=== PATIENT | male | born 1955 | race Caucasian/White ===

== ENCOUNTER → 2016-11-01 | Outpatient (REF) | payer OTHER ==
[~2016-11-01] MED LIST: /AMLO25TA OR; ADV250INH INH; ALBUTEROL MDI INH; ASPI1TAB PO; ASPI325T PO; CEPH2CAP OR; CIPR500S PO; FLAG500T PO; FOLI1TAB86 PO; LASI40TA PO; LOSA50TA20 PO; MICR10CA PO; NICO21DI26 EXT; SPIRIVA HANDIHALER INH; TYLE325T5 PO; ULTR50TA PO; VITA100066 PO; VITA100T2 PO; VITMTA OR
[2016-11-01 12:46] LABS: MEAN CORPUSCULAR HEMOGLOBIN 30.7 pg (27.0-33.0); MEAN CORPUSCULAR HGB CONC 34.3 g/dl (32.0-36.5); MEAN CORPUSCULAR VOLUME 89.6 fl (80.0-96.0); RED CELL DISTRIBUTION WIDTH 13.5 % (11.5-14.5); WHITE BLOOD COUNT 3.8 K/mm3 (4.0-10.0)
[2016-11-01 13:07] LABS: ALBUMIN 3.8 GM/DL (3.2-5.2); ALBUMIN/GLOBULIN RATIO 1.36 (1.00-1.93); ALKALINE PHOSPHATASE 93 U/L (45-117); ALT/SGPT 24 U/L (12-78); ANION GAP 6 MEQ/L (8-16); AST/SGOT 17 U/L (15-37); BILIRUBIN,TOTAL 0.4 MG/DL (0.2-1.0); BLOOD UREA NITROGEN 12 MG/DL (7-18); CALCIUM LEVEL 8.8 MG/DL (8.8-10.2); CARBON DIOXIDE LEVEL 29 MEQ/L (21-32); CHLORIDE LEVEL 107 MEQ/L (98-107); CHOLESTEROL LEVEL 190 MG/DL (<200); CREATININE FOR GFR 0.73 MG/DL (0.70-1.30); GLOMERULAR FILTRATION RATE > 60.0 (>49); GLUCOSE, FASTING 106 MG/DL (80-110); POTASSIUM SERUM 4.5 MEQ/L (3.5-5.1); SODIUM LEVEL 142 MEQ/L (136-145); TOTAL PROTEIN 6.6 GM/DL (6.4-8.2); TRIGLYCERIDES LEVEL 64 MG/DL (<150)
== END ==
LOC: M SFHCADAM 07:53
PROVIDERS: ATTEND Family Medicine
DX: D64.9 Anemia, unspecified (principal); I10 Essential (primary) hypertension; E78.5 Hyperlipidemia, unspecified; E55.9 Vitamin D deficiency, unspecified

== ENCOUNTER → 2016-11-15 | Outpatient (CLI) | payer OTHER ==
--- NOTE | 2016-11-16 00:06 | REP ---
Clinical: Right upper quadrant abdominal pain. Technique: Owens scale ultrasound using curved array transducer. Findings: The liver and pancreas are normal in contour, size, and echogenicity without focal hepatic or pancreatic lesions identified. The gallbladder is normal without gallstones, wall thickening or pericholecystic fluid. No biliary ductal dilatation is appreciated, and the common bile duct measures 3.4 mm diameter. The right kidney is normal in reniform shape without hydronephrosis and measures 10.5 x 7.0 x 6.1 cm. No ascites. Visualized portions of the abdominal aorta normal. Impression: Normal right upper quadrant and gallbladder abdominal ultrasound. Signed by Dayron Dumont MD 11/15/2016 11:57 P
== END ==
LOC: M RAD 08:58
PROVIDERS: ATTEND Family Medicine
DX: R10.11 Right upper quadrant pain (principal)

== ENCOUNTER → 2018-01-03 | Outpatient (REF) | payer OTHER ==
[2018-01-03 13:38] LABS: BASO % 0.8 % (0.0-1.0); EOS # 0.2 10^3/uL (0.0-0.50); EOS % 4.1 % (0.0-3.0); HEMATOCRIT 37.1 % (42.0-52.0); HEMOGLOBIN 11.8 g/dl (13.5-17.5); IMMATURE GRANULOCYTE % 0.2 % (0-3.0); LYMPH # 1.4 10^3/uL (1.5-4.5); LYMPH % 26.9 % (24.0-44.0); MEAN CORPUSCULAR HEMOGLOBIN 28.8 pg (27.0-33.0); MEAN CORPUSCULAR HGB CONC 31.8 g/dl (32.0-36.5); MEAN CORPUSCULAR VOLUME 90.5 fl (80.0-96.0); MONO # 0.3 10^3/uL (0.0-0.8); MONO % 5.1 % (0.0-5.0); NEUTROPHILS # 3.2 10^3/uL (1.8-7.7); NEUTROPHILS % 62.9 % (36.0-66.0); PLATELET COUNT, AUTOMATED 237 10^3/uL (150-450); RED CELL DISTRIBUTION WIDTH 14.1 % (11.5-14.5); RETIC HEMOGLOBIN EQUIVALENT 33.5 pg (24-36); RETICULOCYTE # 48.8 10^9/L (17-77); RETICULOCYTE % 1.2 % (0.5-1.5); WHITE BLOOD COUNT 5.1 10^3/uL (4.0-10.0)
[2018-01-03 14:14] LABS: ALBUMIN 3.6 GM/DL (3.2-5.2); ALBUMIN/GLOBULIN RATIO 1.16 (1.00-1.93); ALKALINE PHOSPHATASE 93 U/L (45-117); ALT/SGPT 24 U/L (12-78); ANION GAP 7 MEQ/L (8-16); AST/SGOT 21 U/L (7-37); BILIRUBIN,TOTAL 0.3 MG/DL (0.2-1.0); BLOOD UREA NITROGEN 16 MG/DL (7-18); CALCIUM LEVEL 8.3 MG/DL (8.8-10.2); CARBON DIOXIDE LEVEL 28 MEQ/L (21-32); CHLORIDE LEVEL 105 MEQ/L (98-107); CHOLESTEROL LEVEL 185 MG/DL (<200); CHOLESTEROL RISK RATIO 4.743 (<5); CPK CREATINE PHOSPHOKINASE 46 U/L (39-308); CREATININE FOR GFR 0.74 MG/DL (0.70-1.30); FERRITIN 49 NG/ML (26-388); GLOMERULAR FILTRATION RATE > 60.0 (>49); GLUCOSE, FASTING 110 MG/DL (70-100); HDL CHOLESTEROL 39 MG/DL (>40); IRON (FE) 52 UG/DL (65-175); LDL CHOLESTEROL 125 MG/DL (<100); MAGNESIUM LEVEL 2.1 MG/DL (1.8-2.4); NON-HDL-C 146 MG/DL; PERCENT SATURATION 14.4 % (19.7-50.0); POTASSIUM SERUM 4.5 MEQ/L (3.5-5.1); SODIUM LEVEL 140 MEQ/L (136-145); TOTAL IRON BINDING CAPACITY 362 UG/DL (250-450); TOTAL PROTEIN 6.7 GM/DL (6.4-8.2); TRIGLYCERIDES LEVEL 105 MG/DL (<150)
== END ==
LOC: M SFHCADAM 08:23
DX: D64.9 Anemia, unspecified (principal); D70.9 Neutropenia, unspecified; R25.2 Cramp and spasm; E78.5 Hyperlipidemia, unspecified; R63.5 Abnormal weight gain; Z12.5 Encounter for screening for malignant neoplasm of prostate

== ENCOUNTER → 2018-04-03 | Outpatient (REF) | payer MEDICAID ==
[~2018-04-03] MED LIST changes: -LOSA50TA20 PO; +LOSA50TA88 PO
[2018-04-03 13:18] LABS: HEMATOCRIT 37.4 % (42.0-52.0); HEMOGLOBIN 12.3 g/dl (13.5-17.5); MEAN CORPUSCULAR HEMOGLOBIN 29.2 pg (27.0-33.0); MEAN CORPUSCULAR HGB CONC 32.9 g/dl (32.0-36.5); MEAN CORPUSCULAR VOLUME 88.8 fl (80.0-96.0); PLATELET COUNT, AUTOMATED 181 10^3/uL (150-450); RED BLOOD COUNT 4.21 10^6/uL (4.30-6.10); WHITE BLOOD COUNT 6.4 10^3/uL (4.0-10.0)
[2018-04-03 13:24] LABS: BLOOD UREA NITROGEN 22 MG/DL (7-18); CALCIUM LEVEL 8.9 MG/DL (8.8-10.2); CARBON DIOXIDE LEVEL 30 MEQ/L (21-32); CHLORIDE LEVEL 103 MEQ/L (98-107); CREATININE FOR GFR 0.81 MG/DL (0.70-1.30); FERRITIN 54 NG/ML (26-388); GLOMERULAR FILTRATION RATE > 60.0 (>49); GLUCOSE, FASTING 91 MG/DL (70-100); IRON (FE) 81 UG/DL (65-175); PERCENT SATURATION 25.2 % (19.7-50.0); POTASSIUM SERUM 4.1 MEQ/L (3.5-5.1); SODIUM LEVEL 139 MEQ/L (136-145); TOTAL IRON BINDING CAPACITY 322 UG/DL (250-450)
== END ==
LOC: M SFHCADAM 09:51
PROVIDERS: ATTEND Family Medicine
DX: D50.9 Iron deficiency anemia, unspecified (principal); I10 Essential (primary) hypertension

== ENCOUNTER → 2018-10-04 | Outpatient (REF) | payer MEDICAID ==
[~2018-10-04] MED LIST changes: -/AMLO25TA OR; -ASPI1TAB PO; +ASPI81TA26 PO; +NORV2TAB OR
[2018-10-04 12:17] LABS: HEMATOCRIT 34.6 % (42.0-52.0); HEMOGLOBIN 11.5 g/dl (13.5-17.5); MEAN CORPUSCULAR HEMOGLOBIN 30.3 pg (27.0-33.0); MEAN CORPUSCULAR HGB CONC 33.2 g/dl (32.0-36.5); MEAN CORPUSCULAR VOLUME 91.1 fl (80.0-96.0); PLATELET COUNT, AUTOMATED 200 10^3/uL (150-450); WHITE BLOOD COUNT 5.1 10^3/uL (4.0-10.0)
[2018-10-04 13:26] LABS: ALBUMIN 3.6 GM/DL (3.2-5.2); ALT/SGPT 24 U/L (12-78); BILIRUBIN,TOTAL 0.3 MG/DL (0.2-1.0); BLOOD UREA NITROGEN 20 MG/DL (7-18); CALCIUM LEVEL 8.5 MG/DL (8.8-10.2); CARBON DIOXIDE LEVEL 30 MEQ/L (21-32); CHLORIDE LEVEL 105 MEQ/L (98-107); CHOLESTEROL LEVEL 202 MG/DL (<200); CHOLESTEROL RISK RATIO 3.482 (<5); CREATININE FOR GFR 0.79 MG/DL (0.70-1.30); FERRITIN 44 NG/ML (26-388); GLOMERULAR FILTRATION RATE > 60.0 (>49); GLUCOSE, FASTING 102 MG/DL (70-100); HDL CHOLESTEROL 58 MG/DL (>40); IRON (FE) 61 UG/DL (65-175); LDL CHOLESTEROL 131 MG/DL (<100); NON-HDL-C 144 MG/DL; PERCENT SATURATION 20.2 % (19.7-50.0); POTASSIUM SERUM 4.6 MEQ/L (3.5-5.1); SODIUM LEVEL 141 MEQ/L (136-145); TOTAL IRON BINDING CAPACITY 302 UG/DL (250-450); TOTAL PROTEIN 6.8 GM/DL (6.4-8.2); TRIGLYCERIDES LEVEL 66 MG/DL (<150)
== END ==
LOC: M SFHCADAM 08:13
PROVIDERS: ATTEND Family Medicine
DX: D50.9 Iron deficiency anemia, unspecified (principal); I10 Essential (primary) hypertension; E78.5 Hyperlipidemia, unspecified

== ENCOUNTER → 2019-03-22 | Outpatient (REF) | payer MEDICAID ==
[2019-03-22 17:34] LABS: HEMATOCRIT 37.8 % (42.0-52.0); HEMOGLOBIN 12.2 g/dl (13.5-17.5); MEAN CORPUSCULAR HEMOGLOBIN 29.8 pg (27.0-33.0); MEAN CORPUSCULAR HGB CONC 32.3 g/dl (32.0-36.5); MEAN CORPUSCULAR VOLUME 92.4 fl (80.0-96.0); PLATELET COUNT, AUTOMATED 215 10^3/uL (150-450); RED BLOOD COUNT 4.09 10^6/uL (4.30-6.10); WHITE BLOOD COUNT 4.9 10^3/uL (4.0-10.0)
[2019-03-22 17:39] LABS: ALBUMIN 3.8 GM/DL (3.2-5.2); ALT/SGPT 25 U/L (12-78); BILIRUBIN,TOTAL 0.3 MG/DL (0.2-1.0); BLOOD UREA NITROGEN 11 MG/DL (7-18); CALCIUM LEVEL 8.9 MG/DL (8.8-10.2); CARBON DIOXIDE LEVEL 30 MEQ/L (21-32); CHLORIDE LEVEL 107 MEQ/L (98-107); CREATININE FOR GFR 0.74 MG/DL (0.70-1.30); FERRITIN 48 NG/ML (26-388); GLOMERULAR FILTRATION RATE > 60.0 (>49); GLUCOSE, FASTING 96 MG/DL (70-100); IRON (FE) 63 UG/DL (65-175); PERCENT SATURATION 19.5 % (19.7-50.0); POTASSIUM SERUM 4.7 MEQ/L (3.5-5.1); SODIUM LEVEL 141 MEQ/L (136-145); TOTAL IRON BINDING CAPACITY 323 UG/DL (250-450); TOTAL PROTEIN 7.1 GM/DL (6.4-8.2)
[2019-03-22 17:51] LABS: HEMOGLOBIN A1c 6.3 %
== END ==
LOC: M SFHCADAM 08:27
PROVIDERS: ATTEND Family Medicine
DX: D50.9 Iron deficiency anemia, unspecified (principal); R73.03 Prediabetes

== ENCOUNTER → 2020-07-08 | Outpatient (CLI) | payer OTHER, MEDICAID ==
--- NOTE | 2020-07-08 12:45 | REP ---
INDICATION: SALES COMPARISON: 02/27/2015 TECHNIQUE: PA and lateral. FINDINGS: There is a large 12 cm well-circumscribed mass which appears to arise from the right hilum into the right mid lung zone. There is a moderate right lower lobe effusion and right basilar atelectasis. These findings are malignant unless proven otherwise. Cardiac silhouette is normal. Left hemithorax is clear. Skeletal structures are intact. IMPRESSION: Large right sided mass with right effusion and atelectasis. Findings are malignant unless proven otherwise. Chest CT with contrast is recommended. <Electronically signed by Dayron Dumont > 07/08/20 [id number]
== END ==
LOC: M ADAMS 12:08
PROVIDERS: ATTEND Family Medicine
DX: R91.8 Other nonspecific abnormal finding of lung field (principal); J90 Pleural effusion, not elsewhere classified; J98.11 Atelectasis; R06.00 Dyspnea, unspecified

== ENCOUNTER → 2020-07-08 | Outpatient (REF) | payer OTHER, MEDICAID ==
[2020-07-08 18:07] LABS: HEMATOCRIT 37.3 % (42.0-52.0); HEMOGLOBIN 11.2 g/dl (13.5-17.5); MEAN CORPUSCULAR HEMOGLOBIN 26.5 pg (27.0-33.0); MEAN CORPUSCULAR VOLUME 88.2 fl (80.0-96.0); PLATELET COUNT, AUTOMATED 283 10^3/uL (150-450); RED BLOOD COUNT 4.23 10^6/uL (4.30-6.10); WHITE BLOOD COUNT 6.2 10^3/uL (4.0-10.0)
[2020-07-08 18:28] LABS: ALBUMIN 3.6 GM/DL (3.2-5.2); ALT/SGPT 22 U/L (12-78); BILIRUBIN,TOTAL 0.3 MG/DL (0.2-1.0); BLOOD UREA NITROGEN 13 MG/DL (7-18); CALCIUM LEVEL 8.9 MG/DL (8.8-10.2); CARBON DIOXIDE LEVEL 35 MEQ/L (21-32); CHLORIDE LEVEL 102 MEQ/L (98-107); CHOLESTEROL LEVEL 198 MG/DL (<200); CHOLESTEROL RISK RATIO 3.355 (<5); CREATININE FOR GFR 0.68 MG/DL (0.70-1.30); FERRITIN 47 NG/ML (26-388); FREE T4 1.01 NG/DL (0.76-1.46); GLOMERULAR FILTRATION RATE > 60.0 (>49); GLUCOSE, FASTING 129 MG/DL (70-100); HDL CHOLESTEROL 59 MG/DL (>40); IRON (FE) 37 UG/DL (65-175); LDL CHOLESTEROL 114 MG/DL (<100); MAGNESIUM LEVEL 2.2 MG/DL (1.8-2.4); NON-HDL-C 139 MG/DL; NT-PRO BNP 24 PG/ML (<125); PERCENT SATURATION 11.5 % (19.7-50.0); POTASSIUM SERUM 4.3 MEQ/L (3.5-5.1); SODIUM LEVEL 138 MEQ/L (136-145); TOTAL IRON BINDING CAPACITY 323 UG/DL (250-450); TOTAL PROTEIN 7.2 GM/DL (6.4-8.2); TRIGLYCERIDES LEVEL 125 MG/DL (<150)
[2020-07-08 19:01] LABS: HEMOGLOBIN A1c 6.4 %
[2020-07-08 19:12] LABS: ERYTHROCYTE SEDIMENTATION RATE 44 mm/hr (0-20)
== END ==
LOC: M SFHCADAM 12:03
PROVIDERS: ATTEND Family Medicine
DX: D50.9 Iron deficiency anemia, unspecified (principal); M77.9 Enthesopathy, unspecified; I10 Essential (primary) hypertension; E78.5 Hyperlipidemia, unspecified; R73.03 Prediabetes; I49.3 Ventricular premature depolarization; R06.00 Dyspnea, unspecified; Z12.5 Encounter for screening for malignant neoplasm of prostate
CPT/HCPCS: 80053; 80061; 82728; 83036; 83550; 83735; 83880; 84439; 84443; 85027; 85046; 85652; G0103

== ENCOUNTER → 2020-07-16 | Outpatient (CLI) | payer MEDICAID, OTHER ==
[~2020-07-16] MED LIST changes: +ISOVUE-370 76% 100ML VIAL As Ordered ONE
--- NOTE | 2020-07-16 12:21 | REP ---
INDICATION: MASS OF RIGHT LUNG. COMPARISON: Radiographs 07/08/2020. CT abdomen and pelvis 02/27/2015. TECHNIQUE: CT chest performed following the intravenous administration of 100 cc of Isovue 370. Sagittal and coronal reconstruction images are performed. FINDINGS: Lungs: There is a large low-density mass with heterogeneous enhancement in the right upper medial hemithorax. This measures approximately 10.6 x 11.3 x 8.9 cm. Mild central air density is seen. Margins are irregular. This extends into the superior mediastinum. It abuts the superior vena cava and causes significant narrowing of the vessel but there is no obstruction of the superior vena cava, with contrast visualized throughout its lumen. Scattered patchy parenchymal opacities are seen in the right lung representing atelectasis and or infiltrate. Mediastinum: No adenopathy. Jessica: No adenopathy. Axilla: No adenopathy. Pleura: There is a large right pleural effusion. Heart: Not enlarged. Thoracic aorta: No aneurysm or dissection. Upper abdominal structures: There is stable adrenal gland thickening bilaterally. Visualized osseous structures: There are diffuse degenerative changes of the spine. Several mid and lower thoracic vertebral bodies demonstrate loss of height most consistent with chronic osteoporotic compression deformities. Multiple Schmorl's nodes are also visualized of these vertebral bodies. IMPRESSION: Large mass upper right hemithorax, low in density with mild heterogeneous enhancement and mild central air density. This most likely represents necrotic neoplasm. An infectious process could also have this appearance. There is significant narrowing of the adjacent superior vena cava but no obstruction. No other significant adenopathy. Large right pleural effusion. Patchy areas of atelectasis/infiltrate right lung. <Electronically signed by Kushal Owens > 07/16/20 [id number]
== END ==
LOC: M RAD 11:06
PROVIDERS: ATTEND Family Medicine
DX: R91.8 Other nonspecific abnormal finding of lung field (principal); J90 Pleural effusion, not elsewhere classified
CPT/HCPCS: 71260; Q9967

== ENCOUNTER → 2020-07-22 | Outpatient (CLI) | payer OTHER ==
[~2020-07-22] MED LIST changes: +ASPI325T49 PO; +D31000TA2 PO; +FERR325T82 PO; +IBUP200T45 PO; -ISOVUE-370 76% 100ML VIAL As Ordered ONE; +PROAAER10 INH
--- NOTE | 2020-07-22 16:42 | RADONC.CN ---
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 He is seen for initial workup and consideration of radiation. Diagnosis/Treatment History Oncologic History Presented to PCP for annual exam 07/08/20. Complained of hemoptysis for ~ 6 months also worsening SOB, orthopnea and SALES. Had CT chest 07/16/20 with large anterior RUL mass impinging on SVC also large right pleural effusion. Recent data: 07/16/20 CT chest FINDINGS: Lungs: There is a large low-density mass with heterogeneous enhancement in the right upper medial hemithorax. This measures approximately 10.6 x 11.3 x 8.9 cm. Mild central air density is seen. Margins are irregular. This extends into the superior mediastinum. It abuts the superior vena cava and causes significant narrowing of the vessel but there is no obstruction of the superior vena cava, with contrast visualized throughout its lumen. Scattered patchy parenchymal opacities are seen in the right lung representing atelectasis and or infiltrate. Mediastinum: No adenopathy. Jessica: No adenopathy. Axilla: No adenopathy. Pleura: There is a large right pleural effusion. Heart: Not enlarged. Thoracic aorta: No aneurysm or dissection. Upper abdominal structures: There is stable adrenal gland thickening bilaterally. Visualized osseous structures: There are diffuse degenerative changes of the spine. Several mid and lower thoracic vertebral bodies demonstrate loss of height most consistent with chronic osteoporotic compression deformities. Multiple Schmorl's nodes are also visualized of these vertebral bodies. IMPRESSION: Large mass upper right hemithorax, low in density with mild heterogeneous enhancement and mild central air density. This most likely represents necrotic neoplasm. An infectious process could also have this appearance. There is significant narrowing of the adjacent superior vena cava but no obstruction. No other significant adenopathy. Large right pleural effusion. Patchy areas of atelectasis/infiltrate right lung. Interval History Reports that he has been having hemoptysis since last year, BPB with mucus, intermittent. He also feels some swelling and tightness on the right side of his neck when he wakes up. Has profound orthopnea cannot tolerate laying on his left side. Can only lay on right. Cannot lay flat on his back or he feels like he cannot breath at all. Denies hoarseness, or stridor. He has right sided chest pain in the upper portion of his chest. Reports he can walk about 60 feet with out having to rest. He denies weight loss or fevers/chills. He does not think that his face is swollen. Explains he is generally resistant to medical care. Past Medical History: COPD HPL HTN Neuropathy CVD Past Surgical History: ORF L femus Family History: Father skin cancer Maternal grandmother colon cancer Social History: 45 pack year former smoker Drinks 1-2 drinks per week Former rose asbestos exposure occupationally Allergies / Meds Allergies: Coded Allergies: No Known Allergies (Unverified , 09/07/12) Home Meds Active Scripts Ciprofloxacin (Cipro) 500 Mg/5 Ml [place], 500 MG PO BID for 7 Days, SAVANA Prov:TELLY MARTINES DO 02/28/15 Metronidazole (Flagyl) 500 Mg Tab, 500 MG PO Q8H for 7 Days, TAB Prov:BOBBIINGGiancarlo DO 02/28/15 Reported Medications Ferrous Sulfate (Iron) 325 Mg Tablet, 1 TAB PO DAILY for 30 Days, #30 TAB 07/22/20 Cholecalciferol (Vitamin D3) (Vitamin D3) 1,000 Unit Tab, 1000 UNIT PO DAILY, TAB 02/27/15 Aspirin (Aspirin EC) 81 Mg Tab, 81 MG PO DAILY, TAB 02/27/15 Losartan Potassium (Losartan Potassium) 50 Mg Tab, 50 MG PO DAILY, TAB 02/27/15 Review of Systems Constitutional: Reports: Fatigue; Denies: Chills, Fever, Weight Loss Eyes: Denies: Pain HEENT: Denies: Head Aches Pulmonary: Reports: Dyspnea, Cough; Denies: Pleuritic Chest Pain Cardiovascular: Reports: Orthopnea; Denies: Chest Pain Gastrointestinal: Denies: Nausea, Abdominal Pain Genitourinary: Denies: Dysuria Hematologic: Denies: Bruising Musculoskeletal: Denies: Neck pain, Back pain Neurological: Denies: Weakness, Numbness Psych: Reports: Mood Normal Vital Signs Ht 74" Wt 270 lbs BMI 34 T 96.6 P 83 BP 191/93 O2 84-86% at rest on room air, 82-84% with ambulation Pain 0 Fatigue 1 General Exam: Positive: Alert, Cooperative, No Acute Distress Eye Exam: Positive: PERRLA, EOMI ENT EXAM: Positive: Atraumatic, Pharynx Normal, Tongue Midline, Pinna Normal, Other ENT (He has mild venous engorgement notes in the jugulars. No obvious facial swelling or plethora. He has visible collateralized veins on the chest. No palpable cervical or supraclavicular adenopathy) Chest Exam: Positive: Clear to auscultation; Negative: Normal air movement (Diminished lung sounds right mid-base. Loss of tactile fremitus over this regions. Scattered mild wheezes elsewhere in the lung benitez) Heart Exam: Positive: Rate Normal, Regular Rhythm Abdomen Exam: Positive: Soft; Negative: Tenderness Extremity Exam: Negative: Edema Skin Exam: Positive: Nl turgor and temperature Neuro Exam: Positive: Normal Gait, Normal Speech, Cranial Nerves 3-12 NL Psych Exam: Positive: Mental status NL Diagnostic and Laboratory Diagnostic Review Radiologic images, relevant labs and pathology reports were personally reviewed and discussed with Mr. Ace. Assessment and Plan Impression Mr. Ace is a 65 year old male former smoker with what is likely locally- advanced NSCLC of the RUL presenting as a large necrotic mass abutting the chest wall anteriorly and causing SVC syndrome as well as a large right pleural effusion, likely malignant, [id number] stage SUKUMAR. He is seen for initial workup and consideration of radiation. Stage Pending PET-CT and biopsy, NSCLC stage SUKUMAR [id number] (effusion) Performance Status ECOG 3 Plan We had an extensive discussion with Mr. Ace regarding the diagnosis at hand and available therapeutic options. I discussed that the clinical scenario is fitting of a NSCLC, the necrotic T4- sized mass in the RUL is telling, I think. This is amenable to biopsy, which I know Dr. Torre has ordered, I will move this up if I am able. In conjunction I also would like him to have a diagnostic and therapeutic thoracentesis to drain the large effusion on the right. Hopefully this will ameliorate his orthopnea. I think he has mild clinical SVC syndrome which is well compensated at the moment. I do not favor treatment without a biopsy, nor do I think he needs urgent endovascular intervention. To stage him completely he should have a PET-CT and an MRI head. With all of this information obtained, we could then discuss treatment which for the locally advanced mass, at least some radiation will be warranted to stabilize and hopefully improve his symptoms. If he has disease limited to the thorax, then I would advocate for more intensive loco-regional therapy, if the patient is willing. I will refer to medical oncology for their opinion on systemic therapy. Finally, he would benefit from home O2 as his O2 sats were 84-86% at rest on room air, and 82-84% with ambulation. After discussing the risks, benefits and alternatives to radiation therapy, Mr. Ace was amenable to pursuing the aforementioned workup. All questions were answered to the patient's satisfaction. I will see him in 1 week for further decision making. We instructed the patient that if there were any questions,concerns or changes in clinical status in the interim to contact us. Recommendations IR biopsy and thoracentesis PET-CT MRI head Medical oncology referral Home O2 No urgent indication for RT without staging Will see back in 1-2 week for further decision making Billing Statement Total time of [62] minutes was spent preparing for the visit [4], obtaining HPI [10], examining the patient [7], reviewing diagnostic tests [5], discussing management options [15], coordinating care [13], and writing this note [8]. NATALIE ROTHMAN MD July 22, 2020 16:42
== END ==
LOC: M ONCR 10:02
PROVIDERS: ATTEND General Practice
DX: C34.11 Malignant neoplasm of upper lobe, right bronchus or lung (principal)

== ENCOUNTER → 2020-07-22 | Outpatient (REF) | payer OTHER, MEDICAID ==
[2020-07-22 14:41] LABS: INR 0.96
[2020-07-22 14:42] LABS: PARTIAL THROMBOPLASTIN TIME 30.9 SECONDS (24.2-38.5)
== END ==
LOC: M SFHCADAM 11:58
PROVIDERS: ATTEND Family Medicine
DX: Z01.818 Encounter for other preprocedural examination (principal); I87.1 Compression of vein; Z79.899 Other long term (current) drug therapy

== ENCOUNTER → 2020-07-23 | Outpatient (CLI) | payer OTHER ==
[~2020-07-23] MED LIST changes: +LIDOCAINE 1% MDV 20ML VIAL As Ordered ONE
[2020-07-23 10:34] VITALS: BP 184/90
--- NOTE | 2020-07-23 16:17 | REP ---
INDICATION: RT LUNG MASS. COMPARISON: None. TECHNIQUE: The procedure was performed under the direct supervision of Dr. Owens. The patient has a history of a 10.6 x 11.3 x 8.9 cm large low density mass in the right upper medial hemithorax seen on a previous CT scan dated 07/17/1999 The risks and benefits of the procedure were explained to the patient and informed consent was obtained. The right upper lobe lung mass was localized using CT guidance. The skin was prepped and draped in a sterile fashion. 1% lidocaine was used as a local anesthetic. Using CT guidance a 19/20 gauge coaxial needle biopsy system was inserted and advanced into the mass. Five core biopsy samples were obtained and sent to the lab. The patient tolerated the procedure well and there were no immediate complications. After the appropriate amount to monitor convalescence the patient was discharged from the department. FINDINGS: None IMPRESSION: CT-guided right upper lobe lung mass biopsy. <Electronically signed by Isac Ely > 07/23/20 1526 <Electronically signed by Kushal Owens > 07/23/20 1614
== END ==
LOC: M IRPRO 10:14
PROVIDERS: ATTEND Family Medicine
DX: C34.11 Malignant neoplasm of upper lobe, right bronchus or lung (principal); J90 Pleural effusion, not elsewhere classified

== ENCOUNTER → 2020-07-23 | Outpatient (CLI) | payer OTHER ==
--- NOTE | 2020-07-23 12:46 | REP ---
INDICATION: POST RIGHT THORA, 2 VIEW. COMPARISON: 07/08/2020. TECHNIQUE: Two views of the chest. FINDINGS: The patient is status post right lung biopsy and thoracentesis today. Large right lung mass is again noted. There is no pneumothorax. There is residual moderate degree of pleural fluid, despite draining 2250 cc of pleural fluid from the right hemithorax. The left lung is clear. The heart does not appear to be significantly enlarged. There is calcification and tortuosity of the thoracic aorta. Once again there are mild degenerative changes of the spine with chronic compression deformities of the midthoracic vertebral bodies. IMPRESSION: No pneumothorax status post right lung biopsy and thoracentesis. Moderate amount of residual pleural fluid is present despite draining 2250 cc of pleural fluid from the right hemithorax. <Electronically signed by Kushal Owens > 07/23/20 [id number]
[2020-07-23 13:55] LABS: PH BODY FLUID 7.601 UNITS (NOT ESTABLISHED); SOURCE, BODY FLUID pH PLEURAL
[2020-07-23 14:08] VITALS: BP 144/76
[2020-07-23 14:21] LABS: AMYLASE, BODY FLUID 35 U/L (NOT ESTABLISHED); LDH, BODY FLUID 627 U/L (NOT ESTABLISHED); SOURCE, BODY FLUID AMYLASE PLEURAL; SOURCE, BODY FLUID GLUCOSE PLEURAL; SOURCE, BODY FLUID LDH PLEURAL; SOURCE, BODY FLUID TOT PROTEIN PLEURAL; TOTAL PROTEIN, BODY FLUID 4.2 G/DL (NOT ESTABLISHED)
[2020-07-23 14:30] LABS: APPEARANCE, BODY FLUID TURBID (CLEAR); PLEURAL FL COLOR RED (COLORLESS); SOURCE, BODY FLUID PLEURAL
--- NOTE | 2020-07-23 16:16 | REP ---
INDICATION: LUNG CA, PLEURAL EFFUSION. COMPARISON: None. TECHNIQUE: The procedure was performed under the direct supervision of Dr. Owens. The risks and benefits of the procedure were explained to the patient and informed consent was obtained. The right pleural effusion was localized using ultrasound guidance. The skin was prepped and draped in a sterile fashion. 1% lidocaine was used as a local anesthetic. An 8 Latvian multi side hole catheter was inserted using trocar technique. 2250 cc of low viscosity red colored fluid was withdrawn with a sample sent to the lab for analysis. The patient tolerated the procedure well and there were no immediate complications. After the appropriate amount to monitor convalescence the patient was discharged from the department. FINDINGS: None IMPRESSION: Ultrasound-guided right thoracentesis yielding 2250 cc of low viscosity red colored fluid. <Electronically signed by Isac Ely > 07/23/20 1530 <Electronically signed by Kushal Owens > 07/23/20 [id number]
== END ==
LOC: M IRPRO 10:23
PROVIDERS: ATTEND General Practice
DX: C34.11 Malignant neoplasm of upper lobe, right bronchus or lung (principal); J90 Pleural effusion, not elsewhere classified

== ENCOUNTER → 2020-07-28 | Outpatient (CLI) | payer OTHER ==
[~2020-07-28] MED LIST changes: -LIDOCAINE 1% MDV 20ML VIAL As Ordered ONE; +PROHANCE 279.3MG/ML 15ML VIAL As Ordered ONE; +PROHANCE 279.3MG/ML 5ML VIAL As Ordered ONE
--- NOTE | 2020-07-28 16:52 | REPVR ---
PROCEDURE INFORMATION: Exam: MR Head Without and With Contrast Exam date and time: 07/28/2020 3:46 PM Age: 65 years old Clinical indication: Condition or disease; History of cancer (specify primary cancer site): ; Patient HX: Recent lung CA dx TECHNIQUE: Imaging protocol: MR of the head without and with intravenous contrast. Contrast material: PROHANCE; Contrast volume: 20 ml; Contrast route: INTRAVENOUS (IV); COMPARISON: No relevant prior studies available. FINDINGS: Limitations: The study is mildly limited due to patient motion artifact. Brain: There is no acute intracranial hemorrhage, cerebral edema, or midline shift. No restricted diffusion is present to suggest acute infarction. Scattered increased T2 and FLAIR signal within the periventricular and subcortical white matter is present. This is nonspecific but likely related to chronic microangiopathic ischemic change. No enhancing lesions were identified after the administration of contrast. Cerebral ventricles: No hydrocephalus. Bones/joints: Unremarkable. Paranasal sinuses: Normal as visualized. No acute sinusitis. Mastoid air cells: Normal as visualized. No mastoid effusion. Orbital cavity: Unremarkable. Soft tissues: Unremarkable. IMPRESSION: 1. No acute abnormality. 2. Chronic findings as discussed above. Electronically signed by: Paxton Lafleur On 07/28/2020 16:51:55 PM
== END ==
LOC: M RAD 14:23
PROVIDERS: ATTEND General Practice
DX: C34.11 Malignant neoplasm of upper lobe, right bronchus or lung (principal)
CPT/HCPCS: 70553; A9576

== ENCOUNTER → 2020-08-11 | Outpatient (CLI) | payer OTHER ==
[~2020-08-11] MED LIST changes: +LIDOCAINE 1% MDV 20ML VIAL As Ordered ONE; -PROHANCE 279.3MG/ML 15ML VIAL As Ordered ONE; -PROHANCE 279.3MG/ML 5ML VIAL As Ordered ONE; +SODIUM BICARBONATE 8.4% INJ 50MEQ 50 ML VIAL As Ordered ONE
--- NOTE | 2020-08-11 15:55 | REP ---
INDICATION: POST THORA, 2 VIEW. Patient is status post right thoracentesis under ultrasound guidance removing 1.7 L of right pleural fluid. COMPARISON: Comparison chest x-ray July 23, 2020.. TECHNIQUE: Upright PA and lateral views. FINDINGS: There is no evidence of pneumothorax. The right hemithorax remains partially opacified with large pleural opacity at the right base. The left lung is clear. There is a large perihilar mass again seen. IMPRESSION: Moderate to large right pleural effusion appears to persist post thoracentesis. No pneumothorax seen. There is a large right perihilar mass. <Electronically signed by Sean Hood > 08/11/20 [id number]
[2020-08-11 17:15] VITALS: BP 134/70
--- NOTE | 2020-08-11 17:37 | REP ---
INDICATION: RT PLEURAL EFFUSION, LAST THORA 07/23/20 The patient has a history of right pleural effusion COMPARISON: None. TECHNIQUE: The procedure was performed by [facility], under the direct supervision of Dr. Hood The risks and benefits of the procedure were explained to the patient and an informed consent was obtained both verbally and written. Directly prior to the start of the procedure a formal time-out was completed in the procedure room. Pleural fluid in right lung zone was localized using ultrasound guidance. The skin was prepped and draped in a sterile fashion. Ten ML of buffered lidocaine was used as a local anesthetic. Using ultrasound guidance an 8-Burundian multi side-hole catheter was inserted using trocar technique. FINDINGS: One thousand seven hundred mL of yellow colored fluid was withdrawn and discarded. The patient tolerated the procedure well and there were no immediate complications. After the appropriate amount of monitored convalescence, the patient was discharged from the department. IMPRESSION: Ultrasound-guided thoracentesis with removal of 1700 mL of yellow pleural fluid. <Electronically signed by Suzanna Fink > 08/11/20 1619 <Electronically signed by Sean Hood > 08/11/20 [id number]
== END ==
LOC: M IRPRO 14:01
PROVIDERS: ATTEND Specialist
DX: J90 Pleural effusion, not elsewhere classified (principal)

== ENCOUNTER 2020-08-12 16:07 | Inpatient (IN) | payer OTHER ==
[2020-08-12] VITALS (15 sets, daily range): BP systolic 143–169; BP diastolic 70–80
[~2020-08-12] VITALS: Ht 188 cm; Wt 127.9 kg
[~2020-08-12 16:07] MED LIST changes: -LIDOCAINE 1% MDV 20ML VIAL As Ordered ONE; -SODIUM BICARBONATE 8.4% INJ 50MEQ 50 ML VIAL As Ordered ONE
[2020-08-12] MEDS ORDERED: PERCOCET 5MG/325MG TAB PO PRN (16:20)
[2020-08-12] MEDS ORDERED: NORCO, ANEXSIA 5/325MG TABLET (HYDROcodone/ACETAMINOPHEN) PO PRN (16:20)
[2020-08-12] MEDS ORDERED: LEVALBUTEROL 1.25 MG/0.5 ML CONCENTRATE NEB NEB PRN (16:20)
[2020-08-12] MEDS ORDERED: ACETAMINOPHEN TAB 650MG DOSE (2X325MG) PO PRN (16:20)
[2020-08-12] MEDS ORDERED: KCL 20MEQ IN D5/NS 1000ML 1,000 ML IV SCH (16:20)
[2020-08-12] MEDS ORDERED: BISACODYL 10 MG SUPP PR PRN (16:20)
[2020-08-12 16:51] LABS: BASO # 0.1 10^3/uL (0.0-0.2); BASO % 0.8 % (0.0-1.0); EOS # 0.2 10^3/uL (0.0-0.5); EOS % 2.4 % (0.0-3.0); HEMATOCRIT 35.2 % (42.0-52.0); HEMOGLOBIN 10.7 g/dl (13.5-17.5); LYMPH # 1.2 10^3/uL (1.5-5.0); LYMPH % 19.1 % (24.0-44.0); MEAN CORPUSCULAR HEMOGLOBIN 26.4 pg (27.0-33.0); MEAN CORPUSCULAR HGB CONC 30.4 g/dl (32.0-36.5); MEAN CORPUSCULAR VOLUME 86.7 fl (80.0-96.0); MONO # 0.4 10^3/uL (0.0-0.8); MONO % 6.2 % (2.0-8.0); NEUTROPHILS # 4.5 10^3/uL (1.5-8.5); NEUTROPHILS % 71.2 % (36.0-66.0); PLATELET COUNT, AUTOMATED 257 10^3/uL (150-450); RED BLOOD COUNT 4.06 10^6/uL (4.30-6.10); WHITE BLOOD COUNT 6.3 10^3/uL (4.0-10.0)
--- NOTE | 2020-08-12 17:10 | REP ---
INDICATION: after placement of pleurX COMPARISON: 08/11/2020 TECHNIQUE: Portable AP view of the chest FINDINGS: There is near complete opacification of the right hemithorax suggesting mass, consolidation and effusion similar to prior examination. Left hemithorax is clear. No obvious pneumothorax. Skeletal structures are stable. IMPRESSION: Near complete opacification of the right hemithorax essentially unchanged. <Electronically signed by Dayron Dumont > 08/12/20 [id number]
[2020-08-12 17:14] LABS: ABG HCO3 33.8 MEQ/L (22.0-26.0); ABG O2 SATURATION 92.5 % (95.0-99.0); ABG PARTIAL PRESSURE CO2 57.2 mmHg (35.0-45.0); ABG PARTIAL PRESSURE O2 68.6 mmHg (75.0-100.0); ABG STANDARD HCO3 30.8 MEQ/L (22.0-26.0); ABG TOTAL CO2 35.5 MEQ/L (23.0-31.0); ABG pH (ARTERIAL) 7.389 UNITS (7.350-7.450)
[2020-08-12 17:17] LABS: BLOOD UREA NITROGEN 16 MG/DL (7-18); CALCIUM LEVEL 8.9 MG/DL (8.8-10.2); CARBON DIOXIDE LEVEL 37 MEQ/L (21-32); CHLORIDE LEVEL 100 MEQ/L (98-107); GLOMERULAR FILTRATION RATE > 60.0 (>49); GLUCOSE, FASTING 107 MG/DL (70-100); POTASSIUM SERUM 3.7 MEQ/L (3.5-5.1); SODIUM LEVEL 139 MEQ/L (136-145)
[2020-08-12 17:25] LABS: RSV AMPLIFICATION NEGATIVE (NEGATIVE)
[2020-08-12] MEDS ORDERED: LIDOCAINE 1% MDV 20ML VIAL As Ordered ONE (17:51)
[2020-08-12] MEDS ORDERED: MIDAZOLAM INJ 2MG/2ML VIAL (J2250 PER 1MG) As Ordered ONE (17:51)
[2020-08-12] MEDS ORDERED: flumazeniL 0.5 MG/5 ML VIAL As Ordered ONE (17:51)
[2020-08-12] MEDS ORDERED: ceFAZolin SOD 1 GM in D5W MINI-BAG PLUS 50 ML IV ONE (18:00)
[2020-08-12] MEDS ORDERED: MIDAZOLAM INJ 2MG/2ML VIAL (J2250 PER 1MG) IV ONE ×2 (18:40→18:45)
[2020-08-12] MEDS ORDERED: LIDOCAINE 1% MDV 20ML VIAL SC ONE ×2 (18:50→18:53)
--- NOTE | 2020-08-12 19:09 | HPEPDOC ---
General Date of Admission August 12, 2020 at 16:20 Date of Service: August 12, 2020 Chief Complaint The patient is a 65-year-old male admitted with a reason for visit of Pleural Effusion. Source: Patient History of Present Illness Mr. Ace is a 65 year old male with recent diagnosis of stage 4 squamous cell carcinoma who was sent here from Dr. Galarza's office for recurrent pleural effusion. He was recently drained by IR and removed about 1.7L of fluid. When he was at Dr. Galarza's office, his CT chest demonstrated a large pleural effusion. Dr. Galarza has spoke with Dr. Castellanos about PleurX catheter. Patient was sent to the ER for evaluation. When I saw the patient, he was in mild distress. He was using respiratory muscles to breath. He tells me that his dyspnea has been going on for years and has gradually worsened. He could not pinpoint when it got acutely worse. He tells me that around January of last year, he started coughing up blood. In March, he was more dyspneic with activity and had trouble shovelling snow. One month ago, he had IR drainage of pleural effusion. He was also found to have squamous cell carcinoma. About a week ago, he was started on 2L of NC at home for his shortness of breath. Otherwise, patient is not normally on oxygen. Today, he was at Dr. Galarza's office for mapping to start treatment, but due to his respiratory status and pleural effusion, he was sent to the ED. Patient will be admitted for acute hypoxic respiratory failure 2/2 recurrent pleural effusion requiring. Home Medications Scheduled Aspirin (Aspirin EC) 325 Mg Tablet.dr, 325 MG PO DAILY, (Reported) Cholecalciferol (Vitamin D3) (Vitamin D3) 1,000 Unit Tablet, 1,000 UNITS PO DAILY, (Reported) Ferrous Sulfate (Iron) 325 Mg Tablet, 325 MG PO DAILY, (Reported) Losartan Potassium (Losartan Potassium) 50 Mg Tab, 50 MG PO DAILY, (Reported) Scheduled PRN Albuterol Sulfate (Proair Hfa) 8.5 Gm Hfa.aer.ad, 2 PUFF INH Q4H PRN for SOB/WHEEZING, (Reported) Allergies Coded Allergies: No Known Allergies (Unverified , 09/07/12) Past Medical History Medical History 1. COPD 2. Hypertension 3. Stage IV squamous cell carcinoma of the right lung 4. Hyperlipidemia 5. Peripheral neuropathy Surgical History 1. Left femur intertrochanteric/subtrochanteric fracture with ORIF with IM juan in 2012 2. Tendon repair of left hand Family History Father: History of skin cancer Mother: History of dementia Social History * Smoker: former Smoker (Quit in 2013, smoked for about 40 years, 2ppd) Alcohol: other (socially) Drugs: denies A-FIB/CHADSVASC A-FIB History Current/History of A-Fib/PAF?: No Review of Systems Constitutional: Denies: Chills, Fever Eyes: Denies: Pain ENT: Denies: Sore Throat Skin: Reports: Other (mutliple moles) Pulmonary: Reports: Dyspnea, Cough Cardiovascular: Reports: Chest Pain (Heavy, positional) Gastrointestinal: Denies: Abdominal Pain Genitourinary: Denies: Dysuria Neurological: Reports: Other Symptoms (paresthesias of feet) Psych: Denies: Anxiety, Depression Physical Examination General Exam: Positive: Alert, Cooperative, Mild Distress Eye Exam: Positive: EOMI ENT Exam: Positive: Atraumatic Neck Exam: Positive: Supple Chest Exam: Positive: Diminished (diminished over right lower lobe) Heart Exam: Positive: Rate Normal, Regular Rhythm Abdomen Exam: Positive: Normal bowel sounds, Soft; Negative: Tenderness Extremity Exam: Positive: Edema Neuro Exam: Positive: Normal Speech, Cranial Nerves 3-12 NL Psych Exam: Positive: Mental status NL, Mood NL Vital Signs Vital Signs Date Time Temp Pulse Resp B/P (MAP) Pulse Ox O2 Delivery O2 Flow Rate FiO2 08/12/20 17:51 97.6 08/12/20 16:47 82 22 134/71 (92) 94 Nasal Cannula 2.0 Laboratory Data Labs 24H Laboratory Tests 2 08/12/20 16:20: Immature Granulocyte % (Auto) 0.3, Neutrophils (%) (Auto) 71.2H, Lymphocytes (%) (Auto) 19.1L, Monocytes (%) (Auto) 6.2, Eosinophils (%) (Auto) 2.4, Basophils (%) (Auto) 0.8, Neutrophils # (Auto) 4.5, Lymphocytes # (Auto) 1.2L, Monocytes # (Auto) 0.4, Eosinophils # (Auto) 0.2, Basophils # (Auto) 0.1, Nucleated Red Blood Cells % (auto) 0.0, Anion Gap 2L, Glomerular Filtration Rate > 60.0, Calcium Level 8.9 08/12/20 16:30: Coronavirus (COVID-19)(PCR) NEGATIVE, Influenza Type A (RT-PCR) NEGATIVE, Influenza Type B (RT-PCR) NEGATIVE, Respiratory Syncytial Virus (PCR) NEGATIVE 08/12/20 16:51: Blood Gas Bicarbonate Standard 30.8H, Arterial Blood pH 7.389, Arterial Blood Partial Pressure CO2 57.2H, Arterial Blood Partial Pressure O2 68.6L, Arterial Blood Total CO2 35.5H, Arterial Blood HCO3 33.8H, Arterial Blood Base Excess 7.0H, Arterial Blood Oxygen Saturation 92.5L CBC/BMP Laboratory Tests 08/12/20 16:20 Assessment/Plan Mr. Ace is a 65 year old male with recent diagnosis of stage 4 squamous cell carcinoma who was sent here from Dr. Galarza's office for recurrent pleural effusion. Patient presented to the ED in respiratory distress. He had trouble completing sentences and was using his accessory muscles to breath. He was recently started on oxygen 1 week ago for dyspnea. Dr. Castellanos is aware of patient and is on the case. He will be placing a PleurX catheter today. Plan / VTE VTE Prophylaxis Ordered?: Yes Plan Plan 1. Acute hypoxic respiratory failure 2/2 recurrent pleural effusion -Patient had trouble completing sentence and was use accessory respiratory muscles -Patient normally not on oxygen. About 1 week ago, was started on 2L -ABG pO2 low at 68.6 -PleurX catheter to be placed by Dr. Castellanos today 2. Recurrent pleural effusion 2/2 stage 4 squamous cell carcinoma -Diagnosed with stage 4 squamous cell carcinoma 1 month ago -Follows with Dr. Mendoza and Dr. Galarza 3. Hypertension -Continue Losartan 4. DVT ppx -Patient having procedure. No chemical ppx. -TEDs Disposition: Pending clinical improvement and Dr. Castellanos's recommendations. ZARIA RAMOS DO August 12, 2020 19:09
--- NOTE | 2020-08-12 20:01 | RO ---
OPERATIVE NOTE DATE OF OPERATION: 08/12/2020 PREOPERATIVE DIAGNOSIS: Recurrent malignant pleural effusion. POSTOPERATIVE DIAGNOSIS: Recurrent malignant pleural effusion. PROCEDURE: Insertion of right tunneled PleurX catheter with moderate sedation. SURGEON: Dr. Fermin Castellanos DESCRIPTION OF PROCEDURE: After satisfactory moderate sedation, patient was prepped and draped in the usual sterile fashion. Entry and exit sites were marked. They were both infiltrated with 1% lidocaine with the entry site being infiltrated all the way to the pleura. Exploring it, it was placed, fluid was found, and a guidewire was placed. Two incisions were made, one around the guidewire and one at the exit site. A tunnel was created between the exit and entry sites, and catheter was pulled through and appropriately positioned. A dilator was placed over the guidewire and followed by a peel-away catheter. The dilator and guidewire were removed and the PleurX catheter placed without difficulty. The peel-away introducer was removed. The catheter was secured to the abdominal wall with 2-0 silk suture, and skin was closed with running 4-0 Monopril subcuticular suture. One liter of serosanguineous fluid was drained. We will send that for the requisite studies of chemistries, cytologies, hematologies, and bacteriologies. Patient tolerated the procedure well, and a chest x-ray is pending.
[2020-08-12] MEDS: KETOROLAC 30 MG/ML 1ML VIAL IV SCH ×2 (20:10→23:34)
[2020-08-12] MEDS: HEPARIN SOD (PORCINE) 5000UNITS/ML 1ML VIAL/SYRINGE SC SCH (20:10)
[2020-08-12 20:12] LABS: PH BODY FLUID 7.497 UNITS (NOT ESTABLISHED); SOURCE, BODY FLUID pH PLEURAL
[2020-08-12 20:14] LABS: APPEARANCE, BODY FLUID HAZY (CLEAR); PLEURAL FL COLOR YELLOW (COLORLESS); SOURCE, BODY FLUID PLEURAL
[2020-08-12] MEDS: DOCUSATE SODIUM 100MG CAPSULE PO SCH (20:20)
[2020-08-12 20:28] LABS: AMYLASE, BODY FLUID 42 U/L (NOT ESTABLISHED); CHOLESTEROL, BODY FLUID 85 MG/DL (NOT ESTABLISHED); LDH, BODY FLUID 607 U/L (NOT ESTABLISHED); SOURCE, BODY FLUID ALBUMIN PLEURAL; SOURCE, BODY FLUID AMYLASE PLEURAL; SOURCE, BODY FLUID CHOL PLEURAL; SOURCE, BODY FLUID GLUCOSE PLEURAL; SOURCE, BODY FLUID LDH PLEURAL; SOURCE, BODY FLUID TOT PROTEIN PLEURAL; SOURCE, BODY FLUID TRIG PLEURAL; TOTAL PROTEIN, BODY FLUID 4.1 G/DL (NOT ESTABLISHED); TRIGLYCERIDE, BODY FLUID 30 MG/DL (NOT ESTABLISHED)
[2020-08-12] MEDS: LEVALBUTEROL 1.25 MG/0.5 ML CONCENTRATE NEB NEB SCH (20:32)
--- NOTE | 2020-08-12 20:35 | CR ---
CONSULTATION DATE: 08/12/2020 Mr. Ace is seen at the request of Dr. Galarza of radiation oncology and the hospitalist service for increasing shortness of breath with recurrent pleural effusion over the last 24 hours. HISTORY OF PRESENT ILLNESS: Patient's story starts last January, when he started coughing up blood. He ignored it, and it eventually went away, only to return in May. By that time he was getting more short of breath and so short of breath that he finally sought medical attention in June. He was becoming gradually more short of breath over the prior 4 months from January. In addition to his cough and hemoptysis, he had a bloating feeling. In June a chest x-ray was undertaken, which showed a lung mass, and he has been eventually diagnosed with nonsmall-cell carcinoma. He is being started on radiation and systemic chemotherapy. Pathology was eventually reported back as squamous cell carcinoma, poorly differentiated. This past week he became more short of breath and was found to have a large pleural effusion, which was drained yesterday for about 1100 mL. Today he is again short of breath, and during his simulation for radiation therapy he was found to have another large pleural effusion. He only showed 1% expression of PD-L1, and he was negative for BRAF. Epidermal growth factor receptor (EGFR) could not be done. Over the past few days he has not been able to lie flat and needs pillows placed behind him to breathe at night. Nonetheless, he still wakes at night. He has not had any fever but has felt a bit chilly but no sweats. He has not lost any weight. In fact, he thinks he has gained some, as he now has bloating of his abdomen. He has not had much of an appetite, although he does swallow without dysphagia. MEDICAL HISTORY: 1. Hypertension. 2. Chronic obstructive pulmonary disease (COPD). 3. Hyperlipidemia. SURGICAL HISTORY: Fractured left femur from a horse accident. HABITS: Smoked for 45 years, up to two packs per day. Alcohol: Used to drink quit a bit but stopped in 2017. Likewise, he stopped smoking in 2017. No illicit drugs. He has two dogs at home but no birds or cats. One dog is a mixed breed, and the other is a [place] camacho. TRAVEL HISTORY: He has been to [place] once but not to the [facility] or foreign travel. OCCUPATIONAL HISTORY: Used to farm. REVIEW OF SYSTEMS: CONSTITUTIONAL: See history of present illness (HPI). EYES: Without diplopia, without amaurosis fugax. NOSE: Without epistaxis. MOUTH: He is edentulous without teeth. RESPIRATORY: See history of present illness (HPI). CARDIAC: See HPI. No history of prior myocardial infarction. Does note leg swelling since January. GASTROINTESTINAL: With some constipation and diarrhea, having self-prescribed himself some antibiotics. No nausea or vomiting but has decreased appetite. There is no dysphagia. GENITOURINARY: Without dysuria or hematuria or prior history of renal stones. NEUROLOGIC: Without paresthesias, paralyses, or prior seizures. Does complain of contractures of his ring and middle fingers. He had that worked up but it was incomplete. Question whether it was Dupuytren's. ENDOCRINE: Without diabetes, without thyroid disease. PSYCHIATRIC: Without pathological anxieties, depressions, or psychoses. General: Well-developed, well-nourished, obese white male in moderate distress, having trouble completing sentences. Vital signs: Temperature is 97.8 with a heart rate of 86 in a sinus rhythm, respiratory rate of 22 without the use of accessory muscles, who is 94% saturated on 2 liters nasal cannula. Blood pressure is 134/71. Head is normocephalic. Eyes: Pupils equal and reactive to light. Extraocular movements intact. Sclerae anicteric. Nose without deformity. Mouth shows the mucous membranes to be pink and moist. Lips and commissures without lesions. No thrush. He is edentulous. Neck is supple. There is no jugular venous distention, no subcutaneous emphysema. Trachea is midline. He has 2+ carotid upstrokes without carotid bruits. There is no cervical lymphadenopathy or thyromegaly. Lungs show markedly decreased breath sounds on the right side with partial E-to-A egophony. Percussion note is completely dull on the right side. Left side shows normal vesicular sounds without wheezes, rhonchi, or rales. Percussion note is full to the diaphragm on the left. Cardiac exam is without murmurs, clicks, gallops, or rubs. I cannot feel his point of maximal impulse (PMI). S1 and S2 are normal. Abdomen is soft and nontender. Bowel sounds are positive. There is no hepatomegaly. No costovertebral angle (CVA) tenderness. Extremities show 2+ pretibial edema bilaterally. There is no calf tenderness. No differential swelling of the upper extremities. Skin is warm, dry, and perfused without cyanosis or mottling, including that of the nailbeds and knees. Neurologic shows II-XII intact. Normal gross motor, gross sensation intact. Gait is not tested. Psychiatric shows him to be awake, alert, and oriented times three with appropriate mood and affect and conversational. His white count today is 6.3 with a hemoglobin and hematocrit of 10.7 and 35.2, respectively. Platelet count is 257, and differential shows 71% neutrophils, 19% lymphocytes, 6% monocytes. There are no immature forms or toxic granulations. His electrolytes are normal with an elevated total CO2 of 37. BUN and creatinine are 16 and 0.6 with a glucose of 107. Blood gases show a pH of 7.38, pCO2 of 57, and a pO2 of 68 with a base excess of 7.0. COVID test is negative. His chest x-ray shows a large pleural effusion on the right. Chest CT done on 07/16/2020 showed a pleural effusion then with a very large upper lobe mass, which was impinging on the superior vena cava. Trachea was slightly compressed laterally. There was almost complete occlusion of the right upper lobe pulmonary artery. His adrenals had a normal configuration. His pathology from pleural fluid was, however, negative for malignancy. IMPRESSION: 1. Most likely probable recurrent malignant effusion, right side. 2. Squamous cell carcinoma. 3. Hypertension. 4. Impending respiratory failure. 5. Hyperlipidemia. 6. Chronic obstructive pulmonary disease (COPD). PLAN AND DISCUSSION: As this is a recurrent pleural effusion, particularly in the last 24 hours, I will place a right PleurX catheter. I will drain 1000 mL from it today, although I suspect there is probably about 2 liters in him. I will save the rest for tomorrow for both teaching purposes and to obviate postexpansion pulmonary edema.
[2020-08-12] MEDS: PERCOCET 5MG/325MG TAB PO PRN (23:34)
[2020-08-13] VITALS (28 sets, daily range): BP systolic 133–199; BP diastolic 61–89
[2020-08-13] MEDS: LEVALBUTEROL 1.25 MG/0.5 ML CONCENTRATE NEB NEB SCH ×4 (02:27→20:10)
[2020-08-13 05:50] LABS: ABG BASE EXCESS 6.5 (-2.0-2.0); ABG HCO3 32.9 MEQ/L (22.0-26.0); ABG O2 SATURATION 92.7 % (95.0-99.0); ABG PARTIAL PRESSURE CO2 56.3 mmHg (35.0-45.0); ABG PARTIAL PRESSURE O2 70.7 mmHg (75.0-100.0); ABG STANDARD HCO3 30.3 MEQ/L (22.0-26.0); ABG TOTAL CO2 34.7 MEQ/L (23.0-31.0); ABG pH (ARTERIAL) 7.385 UNITS (7.350-7.450)
[2020-08-13 05:54] LABS: BASO % 0.4 % (0.0-1.0); EOS # 0.2 10^3/uL (0.0-0.5); EOS % 2.8 % (0.0-3.0); HEMATOCRIT 34.8 % (42.0-52.0); HEMOGLOBIN 10.3 g/dl (13.5-17.5); LYMPH # 1.3 10^3/uL (1.5-5.0); LYMPH % 23.3 % (24.0-44.0); MEAN CORPUSCULAR HEMOGLOBIN 26.1 pg (27.0-33.0); MEAN CORPUSCULAR HGB CONC 29.6 g/dl (32.0-36.5); MEAN CORPUSCULAR VOLUME 88.3 fl (80.0-96.0); MONO # 0.4 10^3/uL (0.0-0.8); MONO % 6.8 % (2.0-8.0); NEUTROPHILS # 3.6 10^3/uL (1.5-8.5); NEUTROPHILS % 66.3 % (36.0-66.0); PLATELET COUNT, AUTOMATED 230 10^3/uL (150-450); RED BLOOD COUNT 3.94 10^6/uL (4.30-6.10); WHITE BLOOD COUNT 5.5 10^3/uL (4.0-10.0)
[2020-08-13] MEDS: KETOROLAC 30 MG/ML 1ML VIAL IV SCH ×3 (06:00→18:23)
[2020-08-13] MEDS: PERCOCET 5MG/325MG TAB PO PRN ×2 (06:02→15:42)
[2020-08-13 06:24] LABS: BLOOD UREA NITROGEN 17 MG/DL (7-18); CALCIUM LEVEL 8.7 MG/DL (8.8-10.2); CARBON DIOXIDE LEVEL 36 MEQ/L (21-32); CHLORIDE LEVEL 102 MEQ/L (98-107); CREATININE FOR GFR 0.62 MG/DL (0.70-1.30); GLOMERULAR FILTRATION RATE > 60.0 (>49); GLUCOSE, FASTING 100 MG/DL (70-100); SODIUM LEVEL 139 MEQ/L (136-145)
[2020-08-13 08:10] LABS: TOTAL PROTEIN 6.5 GM/DL (6.4-8.2)
--- NOTE | 2020-08-13 08:11 | REP ---
INDICATION: after placement of pleurX COMPARISON: 08/12/2020 TECHNIQUE: PA and lateral. FINDINGS: Right-sided chest tube in stable position and there has been decreased right pleural fluid. Underlying right hilar mass and mid to lower lobe opacities are again noted. Left hemithorax is clear. Skeletal structures are intact. Visualized portions of the cardiac silhouette are grossly normal. IMPRESSION: Moderately decreased right pleural fluid. <Electronically signed by Dayron Dumont > 08/13/20 [id number]
[2020-08-13] MEDS: PANTOPRAZOLE 40MG VIAL (C9113 PER 1) IV SCH (08:22)
[2020-08-13] MEDS: HEPARIN SOD (PORCINE) 5000UNITS/ML 1ML VIAL/SYRINGE SC SCH ×2 (08:22→20:10)
[2020-08-13] MEDS: DOCUSATE SODIUM 100MG CAPSULE PO SCH ×2 (08:23→20:10)
[2020-08-13] MEDS: LOSARTAN 50MG TABLET PO SCH (08:23)
[2020-08-13] MEDS: VITAMIN D 1,000 INTERNATIONAL UNITS TABLET PO SCH (08:23)
[2020-08-13] MEDS: MOM 30ML SUSPENSION UDC PO SCH (08:23)
[2020-08-13] MEDS: FERROUS SULFATE 325MG TAB PO SCH (08:23)
[2020-08-13] MEDS ORDERED: ALTEPLASE 2MG/2ML VIAL XX ONE (08:55)
[2020-08-13] MEDS ORDERED: ASPIRIN ENTERIC 325 MG TAB PO SCH (09:00)
--- NOTE | 2020-08-13 09:01 | RADENCPD ---
Date/Time of Encounter Date of Encounter: August 13, 2020 Time of Encounter: 08:43 Encounter Saw Tayo at bedside this AM. He notes improvement in his breathing and some mild improvement in orthopnea since the pleurX was placed (many thanks to Dr. Castellanos for facilitating this). He does say that he feels slightly bloated in the abdomen this AM. Minimal pain. He is due for CT this AM (transport is here to take him down). I will review his films and if there is improvement in the effusion noted, then we can re-simulate him today so as not to delay the start of RT. If there is minimal improvement in his pleural fluid, then we can re-simulate on Sunday and I will expedite his planning so as not to delay. I will also speak with Dr. Mendoza regarding concurrent chemotherapy for him as Tayo expressed some reservations about this to me and with the nature of his effusion almost certainly malignant, he may be better served by sequential sy stemic therapy after a hypofractionated course of RT. Will solidify a plan for this. NATALIE ROTHMAN MD August 13, 2020 09:01
--- NOTE | 2020-08-13 09:20 | REP ---
INDICATION: sob. Non-small cell lung carcinoma. COMPARISON: Comparison CT study July 16, 2020.. TECHNIQUE: Helical scanning is acquired. 3 mm axial images are generated. Coronal and sagittal MPR and coronal MIP images are generated. FINDINGS: A PleurX catheter has been inserted into the right pleural space and appears in good position. There is a moderate amount of pleural fluid persisting in the right pleural space with atelectatic changes in the right lower lobe. There appears to be some tethering of the atelectatic lung parenchyma posterolaterally which may reflect fibrosis or septations. The The large mass in the distribution of the right upper lobe persists with some post biopsy air within it. This is otherwise unchanged. There are granulomatous calcifications in the left upper lobe unchanged. There is a pleural based nodule in the left lower lobe posteriorly measuring 6 mm. This is not visible on the July 16, [address] images. No other new pulmonary nodule is appreciated. No adrenal mass lesion is seen. There is some edema along the right lateral chest wall and surrounding the trapezius muscle on the right. This may be related to tube placement procedure. I suspect a small area of chest wall hematoma. there appear to be sideholes in the PleurX catheter outside of the pleural space in the right chest wall. IMPRESSION: Moderate right pleural effusion persists post PleurX catheter placement. Chest wall edema, side holes in the extra thoracic soft tissues, and question small chest wall hematoma. <Electronically signed by Sean Hood > 08/13/20 0916
[2020-08-13] MEDS ORDERED: MIDAZOLAM INJ 2MG/2ML VIAL (J2250 PER 1MG) As Ordered ONE (09:58)
[2020-08-13] MEDS ORDERED: LIDOCAINE 1% MDV 20ML VIAL As Ordered ONE ×2 (09:59→10:25)
[2020-08-13] MEDS ORDERED: flumazeniL 0.5 MG/5 ML VIAL As Ordered ONE (10:00)
[2020-08-13] MEDS ORDERED: ceFAZolin 2 GM/D5W 50 ML IV BAG (J0690 PER 500MG) As Ordered ONE (10:12)
[2020-08-13] MEDS ORDERED: LIDOCAINE 1% MDV 20ML VIAL SC ONE ×2 (10:17→10:25)
[2020-08-13] MEDS ORDERED: MIDAZOLAM INJ 2MG/2ML VIAL (J2250 PER 1MG) IV ONE ×3 (10:17→10:25)
[2020-08-13] MEDS ORDERED: ceFAZolin SOD 2 GM in IV 1 EA IV ONE (10:30)
--- NOTE | 2020-08-13 10:38 | IPNPDOC ---
Subjective Date Seen The patient was seen on 08/13/20. Subjective Chief Complaint/HPI Mr. Ace is a 65 year old male with recent diagnosis of stage 4 squamous cell carcinoma who was sent here from Dr. Galarza's office for recurrent pleural effusion. Dr. Castellanos placed a PleurX catheter on 08/13/2020. Yesterday afternoon, he drained a total of 1L of fluid. Overnight, patient required more oxygen, going from 2L to 6L. This morning, patient denies chest pain or worsening dyspnea. He has pain around the PleurX catheter site and leakage. He had to have it changed and drained a little bit later night. I was contacted at 9:38AM to come re-evaluate the patient. Patient was dizzy with BP 198/82. Patient was in a lot of pain. CT chest demonstrates moderate right pleural effusion. There is also chest wall edema with the side holds of the catheter in the extra thoracic soft tissue and a possible small chest wall hematoma. On exam ination, his right abdomen has pitting edema while left abdomen does not. His bandages are soaked. Dr. Castellanos came to see the patient and will be placing a new PleurX catheter today. Objective Physical Examination General Exam: Positive: Alert, Cooperative Eye Exam: Positive: EOMI; Negative: Sclera icteric ENT Exam: Positive: Atraumatic Neck Exam: Positive: Supple Chest Exam: Positive: Diminished (diminished over right lower lobe) Heart Exam: Positive: Rate Normal, Regular Rhythm Abdomen Exam: Positive: Normal bowel sounds, Soft, Tenderness (right abdomen), Other (Right abdomen pitting edema) Extremity Exam: Positive: Edema Neuro Exam: Positive: Normal Speech, Cranial Nerves 3-12 NL Psych Exam: Positive: Mental status NL, Mood NL Assessment /Plan Assessment Mr. Ace is a 65 year old male with recent diagnosis of stage 4 squamous cell carcinoma who was sent here from Dr. Galarza's office for recurrent pleural effusion. Patient presented to the ED in respiratory distress. On admission, he had trouble completing sentences and was using his accessory muscles to breath. He was recently started on oxygen 1 week ago for dyspnea. Dr. Castellanos is aware of patient and placed a PleurX catheter on 08/12/2020. Otherwise, on 08/12/2020, he drained 1L of fluid. This fluid looks exudative (Fluid protein 4.1, Total protein 6.5). There is still more fluid to be drained. Slow drainage to prevent re-expansion pulmonary edema. The side holes of the catheter was in the soft tissue causing abdominal wall pitting edema. Dr. Castellanos replacing the PleurX catheter today. Plan/VTE VTE Prophylaxis Ordered?: Yes Plan 1. Acute hypoxic respiratory failure 2/2 recurrent pleural effusion -Patient had trouble completing sentence and was use accessory respiratory m uscles -Patient normally not on oxygen. About 1 week ago, was started on 2L. Now requiring 6L -ABG pO2 low at 68.6 -PleurX catheter placed on 08/12/2020. Replaced on 08/13/2020 for better positioning of the side holes 2. Recurrent pleural effusion 2/2 stage 4 squamous cell carcinoma -Diagnosed with stage 4 squamous cell carcinoma 1 month ago -Follows with Dr. Mendoza and Dr. Galarza 3. Hypertension -Continue Losartan 4. DVT ppx -Patient having procedure. No chemical ppx. -TEDs Disposition: Pending clinical improvement and Dr. Castellanos's recommendations. VS, I&O, [facility], [facility] Vital Signs/I&O Vital Signs Date Time Temp Pulse Resp B/P (MAP) Pulse Ox O2 Delivery O2 Flow Rate FiO2 08/13/20 08:23 147/68 08/13/20 07:00 19 08/13/20 06:02 96.3 74 93 Nasal Cannula 6.0 I&O- Last 24 Hours up to 6 AM 08/13/20 06:00 Intake Total 0 ml Output Total 1500 ml Balance -1500 ml Laboratory Data 24H LABS Laboratory Tests 2 08/12/20 16:20: Immature Granulocyte % (Auto) 0.3, Neutrophils (%) (Auto) 71.2H, Lymphocytes (%) (Auto) 19.1L, Monocytes (%) (Auto) 6.2, Eosinophils (%) (Auto) 2.4, Basophils (%) (Auto) 0.8, Neutrophils # (Auto) 4.5, Lymphocytes # (Auto) 1.2L, Monocytes # (Auto) 0.4, Eosinophils # (Auto) 0.2, Basophils # (Auto) 0.1, Nucleated Red Blood Cells % (auto) 0.0, Anion Gap 2L, Glomerular Filtration Rate > 60.0, Calc ium Level 8.9 08/12/20 16:29: Lactate Dehydrogenase 208 08/12/20 16:30: Coronavirus (COVID-19)(PCR) NEGATIVE, Influenza Type A (RT-PCR) NEGATIVE, Influenza Type B (RT-PCR) NEGATIVE, Respiratory Syncytial Virus (PCR) NEGATIVE 08/12/20 16:51: Blood Gas Bicarbonate Standard 30.8H, Arterial Blood pH 7.389, Arterial Blood Partial Pressure CO2 57.2H, Arterial Blood Partial Pressure O2 68.6L, Arterial Blood Total CO2 35.5H, Arterial Blood HCO3 33.8H, Arterial Blood Base Excess 7.0H, Arterial Blood Oxygen Saturation 92.5L 08/12/20 19:30: Body Fluid pH 7.497, Body Fluid pH Source PLEURAL, Body Fluid WBC (Auto) 311H, Body Fluid RBC (Auto) 10, Body Fluid Mononuclear Cells % Auto 85.9H, Fluid Polymorphonuclear Cell % Auto 14.1H, Body Fluid Glucose Source PLEURAL, Body Fluid Glucose 112, Body Fluid Protein Source PLEURAL, Body Fluid Total Protein 4.1, Body Fluid Albumin Source PLEURAL, Body Fluid Albumin 2.2, Body Fluid LDH Source PLEURAL, Body Fluid Lactate Dehydrogenase 607, Body Fluid Amylase Source PLEURAL, Body Fluid Amylase 42, Body Fluid Cholesterol 85, Body Fluid Cholesterol Source PLEURAL, Body Fluid Triglyceride Source PLEURAL, Body Fluid Triglycerides 30, Pleural Fluid Source PLEURAL, Pleural Fluid Color YELLOW, Pleural Fluid Appearance HAZY 08/13/20 05:39: Immature Granulocyte % (Auto) 0.4, Neutrophils (%) (Auto) 66.3H, Lymphocytes (%) (Auto) 23.3L, Monocytes (%) (Auto) 6.8, Eosinophils (%) (Auto) 2.8, Basophils (%) (Auto) 0.4, Neutrophils # (Auto) 3.6, Lymphocytes # (Auto) 1.3L, Monocytes # (Auto) 0.4, Eosinophils # (Auto) 0.2, Basophils # (Auto) 0.0, Nucleated Red Bloo d Cells % (auto) 0.0, Anion Gap 1L, Glomerular Filtration Rate > 60.0, Calcium Level 8.7L, Total Protein 6.5 08/13/20 05:40: Blood Gas Bicarbonate Standard 30.3H, Arterial Blood pH 7.385, Arterial Blood Partial Pressure CO2 56.3H, Arterial Blood Partial Pressure O2 70.7L, Arterial Blood Total CO2 34.7H, Arterial Blood HCO3 32.9H, Arterial Blood Base Excess 6.5H, Arterial Blood Oxygen Saturation 92.7L CBC/BMP Laboratory Tests 08/12/20 16:20 08/13/20 05:39 Microbiology Microbiology 08/12/20 Gram Stain, Received Pending 08/12/20 Anaerobic Culture, Received Pending 08/12/20 Body Fluid Culture, Received Pending ZARIA RAMOS DO August 13, 2020 09:05
--- NOTE | 2020-08-13 11:17 | REP ---
INDICATION: pluer X. 11:08 a.m. radiograph. COMPARISON: Comparison chest x-ray is from 10/15 1 a.m. on this same date. TECHNIQUE: Portable upright AP chest radiograph. FINDINGS: The right-sided PleurX catheter has been inserted further and terminates at the apex of the right lung. The right pleural effusion show significant improvement since the earlier film today. A large right perihilar mass is again seen in the upper lobe distribution. No definite pneumothorax is seen. Left lung remains clear except for some platelike atelectasis overlying the heart. EKG monitoring electrodes and oxygen tubing are seen.. IMPRESSION: Improved right pleural effusion post repositioning of PleurX catheter.. <Electronically signed by Sean Hood > 08/13/20 [id number]
--- NOTE | 2020-08-13 12:44 | IPN ---
PROGRESS NOTE DATE: 08/13/2020 SUBJECTIVE: In the early hours of the morning around 1 a.m., I received a call from the nursing staff that there was increased drainage from the catheter site at the exit site. I asked them to drain him of 1000 mL and only 100 mL came out. This morning, he has pitting edema over the abdominal wall and the posterior chest wall. Chest x-ray today now upright and PA and lateral show holes outside the chest. This is confirmed with a CT scan, which also showed some holes outside the chest. He is also complaining of pain in his abdomen from the edema. OBJECTIVE: VITAL SIGNS: Show a T-max of 96.4 with a heart rate that ranges between 70 and 74 in sinus rhythm. Respiratory rate of 16 to 19 without the use of accessory muscles who is 93% to 97% saturated on 6 liters nasal cannula. His blood pressure is ranging between 133/67, but kayleigh to 198 systolically with his pain. . RESPIRATORY: He has decreased breath sounds in the right hemithorax. There is edema over the posterior hemithorax, as well as the lateral hemithorax on the right side. The left side shows normal vesicular sounds. Percussion note is dull at the base on the right. CARDIAC: Without murmurs, clicks, gallops, or rubs. I cannot feel his PMI. S1 and S2 are normal. ABDOMEN: Soft and nontender on the left; however, on the right it is more tender from the edema and more firm and almost indurated. Bowel sounds are positive. EXTREMITIES: Show 2+ pretibial edema. No calf tenderness. No differential swelling of the upper extremities. SKIN: Warm, dry, and perfused without cyanosis or mottling, including that of the nail beds and knees. NECK: Supple. There is no jugular venous distention. No subcutaneous emphysema. Trachea is midline. MOUTH: Shows the mucous membranes to be pink and moist. Lips and commisures are without lesions and no thrush. EYES: Show his pupils equal and reactive. Extraocular muscles are intact. Sclerae nonicteric. NEUROLOGIC: Shows II through XII intact. Normal gross motor, gross sensation intact. Gait is not tested. PSYCHIATRIC: Shows him to be awake, alert, and oriented x3 with appropriate mood and affect and conversational. LABORATORY DATA: His white count today is 5.5 with hemoglobin and hematocrit of 10.3 and 34.8 essentially unchanged from yesterday with a platelet count of 230,000 and stable. Differential shows 66% neutrophils, 23% lymphocytes, and 6% monocytes. There are no immature forms and no toxic granulations. His electrolytes are normal with a BUN and creatinine of 17 and 0.62, calcium of 8.7. Glucose is 100. His pleural fluid analysis from yesterday shows a pH of 7.49 with a glucose of 112, LDH of 607 with a corresponding serum LDH of 208 and a total protein of 4.1 with a corresponding total protein of 6.5. He has 311 white cells, 85% of which are mononuclear and lymphocytes, and only 14% are PMNs. This therefore looks like an exudative pleural effusion and I suspect it is going to be malignant. Pathology is pending. Microbiology shows no organisms on gram stain. IMAGING DATA: His chest x-ray is as discussed above. He still has considerable opacity in the right lower hemithorax representing a pleural effusion. His CT scan shows a considerable amount of fluid left in his chest. There is at least one if not two PleurX catheter holes outside the chest. There is edema of the chest wall and of the abdominal wall. PleurX catheter itself looks to be in good place. IMPRESSION: 1. Recurrent malignant pleural effusion right side. 2. Squamous cell carcinoma. 3. Hypertension. 4. Impending respiratory failure. 5. Hyperlipidemia. 6. Chronic obstructive pulmonary disease. 7. Malplacement of the PleurX catheter with leaking of fluid into the soft tissues. PLAN AND DISCUSSION: I will need to replace the catheter as it cannot be pushed in any further. He is such a large gentleman that the usual placement of the healing collar near the exit site was not sufficient and I will have to place it more in the midline of the tract. I will do this under conscious sedation. I have explained to the patient the problem, he understands, and we will proceed.
--- NOTE | 2020-08-13 12:51 | RO ---
OPERATIVE NOTE DATE OF OPERATION: 08/13/2020 PREPROCEDURE DIAGNOSIS: Malplacement of original PleurX catheter with PleurX catheter hole outside the chest wall. POSTPROCEDURE DIAGNOSIS: Malplacement of original PleurX catheter with PleurX catheter hole outside the chest wall. PROCEDURE: Replacement of PleurX catheter. SURGEON: Fermin Castellanos M.D. SCHOOL COOK: None. ANESTHESIA: Moderate sedation with 3 mg of Versed. DESCRIPTION OF PROCEDURE: Under satisfactory moderate sedation achieved with 3 mg of Versed, the patient was prepped and draped in the usual sterile fashion. A new entry and exit site were chosen and marked. Exploring needle was placed into the chest between the mid and posterior axillary lines at the approximate sixth intercostal space. Fluid was obtained and wire was placed. Incision was made for the exit site and for the entry site, a tunnel was created from the exit to the entry site, and the catheter pulled through the tunnel. The tract was then dilated and a Peel-Away introducer placed and the PleurX placed without difficulty. Prior to placement of the catheter, the catheter was pulled through from the exit site to the mid portion between the exit and entry sites, so that the healing collar was fci in between. The entry wound was closed with running 4-0 Monocryl suture covered with Dermabond and the catheter was secured to the chest wall with 2-0 silk suture. It should be noted that one exit site wound was made encountering a skin bleeder. This site was moved after suturing the site and stopping the skin bleeder. 1950 mL of fluid was then drained from the chest. The patient tolerated the procedure well and a chest x-ray is pending.
[2020-08-13] MEDS: ceFAZolin SOD 1 GM in D5W MINI-BAG PLUS 50 ML IV SCH (18:23)
[2020-08-13] MEDS: ONDANSETRON 4MG/2ML VIAL IV PRN (20:10)
[2020-08-13] MEDS: SIMETHICONE 80MG CHEW TAB PO PRN (20:10)
[2020-08-14] VITALS (8 sets, daily range): BP systolic 115–168; BP diastolic 61–81
[2020-08-14] MEDS: ONDANSETRON 4MG/2ML VIAL IV PRN ×2 (00:11→11:45)
[2020-08-14] MEDS: KETOROLAC 30 MG/ML 1ML VIAL IV SCH ×4 (00:11→18:50)
[2020-08-14] MEDS: LEVALBUTEROL 1.25 MG/0.5 ML CONCENTRATE NEB NEB SCH ×4 (02:13→19:58)
[2020-08-14] MEDS: ceFAZolin SOD 1 GM in D5W MINI-BAG PLUS 50 ML IV SCH ×2 (04:11→10:40)
[2020-08-14 05:23] LABS: BASO % 0.4 % (0.0-1.0); EOS # 0.2 10^3/uL (0.0-0.5); EOS % 2.3 % (0.0-3.0); HEMOGLOBIN 10.1 g/dl (13.5-17.5); LYMPH # 0.8 10^3/uL (1.5-5.0); LYMPH % 10.6 % (24.0-44.0); MEAN CORPUSCULAR HEMOGLOBIN 25.9 pg (27.0-33.0); MEAN CORPUSCULAR HGB CONC 29.7 g/dl (32.0-36.5); MEAN CORPUSCULAR VOLUME 87.2 fl (80.0-96.0); MONO # 0.4 10^3/uL (0.0-0.8); MONO % 6.2 % (2.0-8.0); NEUTROPHILS # 5.7 10^3/uL (1.5-8.5); NEUTROPHILS % 80.1 % (36.0-66.0); PLATELET COUNT, AUTOMATED 222 10^3/uL (150-450); WHITE BLOOD COUNT 7.1 10^3/uL (4.0-10.0)
[2020-08-14 05:44] LABS: BLOOD UREA NITROGEN 17 MG/DL (7-18); CALCIUM LEVEL 8.3 MG/DL (8.8-10.2); CARBON DIOXIDE LEVEL 34 MEQ/L (21-32); CHLORIDE LEVEL 98 MEQ/L (98-107); CREATININE FOR GFR 0.63 MG/DL (0.70-1.30); GLOMERULAR FILTRATION RATE > 60.0 (>49); GLUCOSE, FASTING 138 MG/DL (70-100); POTASSIUM SERUM 4.1 MEQ/L (3.5-5.1); SODIUM LEVEL 138 MEQ/L (136-145)
[2020-08-14] MEDS: MOM 30ML SUSPENSION UDC PO SCH (09:00)
--- NOTE | 2020-08-14 09:49 | REP ---
INDICATION: after placement of pleurX COMPARISON: 08/13/2020 TECHNIQUE: PA and lateral. FINDINGS: Right-sided chest tube in stable position and decreased right pleural effusion is appreciated. Underlying large right hilar mass along with right lower lobe parenchymal disease and decreased residual pleural fluid noted. Left hemithorax demonstrates small pleural effusion and minimal basilar atelectasis. IMPRESSION: 1. Decreased right-sided pleural effusion. Continued evidence for right-sided hilar mass, right lower lobe airspace disease and small left pleural effusion with trace left basilar atelectasis. <Electronically signed by Dayron Dumont > 08/14/20 [id number]
[2020-08-14] MEDS ORDERED: SLF 3 ML SYR IV PRN (10:25)
--- NOTE | 2020-08-14 10:32 | REP ---
INDICATION: Hypercoagulable (malignancy), leg cramping COMPARISON: None. TECHNIQUE: Owens scale and color Doppler evaluation using linear high frequency transducer. FINDINGS: Ultrasound examination of the right and left lower extremity deep venous structures from the common femoral vein demonstrates normal compressibility flow and wave patterns in response to respiration and augmentation. There is no evidence for deep venous thrombosis. Bilateral calf veins to the ankles were incompletely evaluated due to edema. IMPRESSION: No evidence for deep venous thrombosis. <Electronically signed by Dayron Dumont > 08/14/20 1027
[2020-08-14] MEDS: PANTOPRAZOLE 40MG VIAL (C9113 PER 1) IV SCH (10:37)
[2020-08-14] MEDS: FERROUS SULFATE 325MG TAB PO SCH (10:37)
[2020-08-14] MEDS: VITAMIN D 1,000 INTERNATIONAL UNITS TABLET PO SCH (10:38)
[2020-08-14] MEDS: LOSARTAN 50MG TABLET PO SCH (10:40)
[2020-08-14] MEDS: HEPARIN SOD (PORCINE) 5000UNITS/ML 1ML VIAL/SYRINGE SC SCH (10:41)
[2020-08-14] MEDS: DOCUSATE SODIUM 100MG CAPSULE PO SCH ×2 (10:45→20:36)
--- NOTE | 2020-08-14 10:46 | IPNPDOC ---
Subjective Date Seen The patient was seen on 08/14/20. Subjective Chief Complaint/HPI Mr. Ace is a 65 year old male with recent diagnosis of stage 4 squamous cell carcinoma who was sent here from Dr. Galarza's office for recurrent pleural effusion. Dr. Castellanos placed the PleurX catheter on 08/12/2020 and replaced it on 08/13/2020. Yesterday, he drained 1950mL. This morning, the pain is better. There is a little bit of residual pitting edema of right abdomen. He reports continued spasms of legs bilaterally. Will check a magnesium level and US Doppler of the legs Objective Physical Examination General Exam: Positive: Alert, Cooperative Eye Exam: Positive: EOMI; Negative: Sclera icteric ENT Exam: Positive: Atraumatic Neck Exam: Positive: Supple Chest Exam: Positive: Diminished (diminished over right lower lobe) Heart Exam: Positive: Rate Normal, Regular Rhythm Abdomen Exam: Positive: Normal bowel sounds, Soft, Tenderness (right abdomen), Other (Right abdomen pitting edema) Extremity Exam: Positive: Edema Neuro Exam: Positive: Normal Speech, Cranial Nerves 3-12 NL Psych Exam: Positive: Mental status NL, Mood NL Assessment /Plan Assessment Mr. Ace is a 65 year old male with recent diagnosis of stage 4 squamous cell carcinoma who was sent here from Dr. Galazra's office for recurrent pleural effusion. Patient presented to the ED in respiratory distress. On admission, he had trouble completing sentences and was using his accessory muscles to breath. He was recently started on oxygen 1 week ago for dyspnea. Dr. Castellanos is aware of patient and placed a PleurX catheter on 08/12/2020. Otherwise, on 08/12/2020, he drained 1L of fluid. This fluid looks exudative (Fluid protein 4.1, Total protein 6.5). There is still more fluid to be drained. Slow drainage to prevent re-expansion pulmonary edema. The side holes of the catheter was in the soft tissue causing abdominal wall pitting edema. Dr. Castellanos replaced the PleurX catheter 08/13/2020. He drained another 1.95L of fluid. Plan/VTE VTE Prophylaxis Ordered?: Yes Plan 1. Acute hypoxic respiratory failure 2/2 recurrent pleural effusion -Patient had trouble completing sentence and was use accessory respiratory muscles -Patient normally not on oxygen. About 1 week ago, was started on 2L. During admission, oxygen requirements peaked at 6L. Now 3L. -ABG pO2 low at 68.6 -PleurX catheter placed on 08/12/2020. Replaced on 08/13/2020 for better positioning of the side holes 2. Recurrent pleural effusion 2/2 stage 4 squamous cell carcinoma -Diagnosed with stage 4 squamous cell carcinoma 1 month ago -Follows with Dr. Mendoza and Dr. Galarza -PleurX catheter in placed 3. Hypertension -Continue Losartan 4. DVT ppx -Patient having procedure. No chemical ppx. -TEDs Disposition: Pending clinical improvement. VS, I&O, 24H, Fishbone Vital Signs/I&O Vital Signs Date Time Temp Pulse Resp B/P (MAP) Pulse Ox O2 Delivery O2 Flow Rate FiO2 08/14/20 08:00 97.4 91 18 147/72 (97) 92 Nasal Cannula 3.0 I&O- Last 24 Hours up to 6 AM 08/14/20 06:00 Intake Total 1880 ml Output Total 3165 ml Balance -1285 ml Laboratory Data 24H LABS Laboratory Tests 2 08/14/20 05:02: Immature Granulocyte % (Auto) 0.4, Neutrophils (%) (Auto) 80.1H, Lymphocytes (%) (Auto) 10.6L, Monocytes (%) (Auto) 6.2, Eosinophils (%) (Auto) 2.3, Basophils (%) (Auto) 0.4, Neutrophils # (Auto) 5.7, Lymphocytes # (Auto) 0.8L, Monocytes # (Auto) 0.4, Eosinophils # (Auto) 0.2, Basophils # (Auto) 0.0, Nucleated Red Blood Cells % (auto) 0.0, Anion Gap 6L, Glomerular Filtration Rate > 60.0, Calcium Level 8.3L CBC/BMP Laboratory Tests 08/14/20 05:02 Microbiology Microbiology 08/12/20 Acid Fast Stain, Received Pending 08/12/20 Mycobacterial Culture, Received Pending 08/12/20 Fungal Smear, Received Pending 08/12/20 Fungal Culture, Received Pending 08/12/20 Gram Stain - Final, Complete 08/12/20 Anaerobic Culture - Final, Complete 08/12/20 Body Fluid Culture, Received Pending ZARIA RAMOS DO August 14, 2020 10:46
[2020-08-14] MEDS: SIMETHICONE 80MG CHEW TAB PO PRN (11:52)
[2020-08-14] MEDS: GASTROGRAFIN SOLUTION 30ML PO SCH ×2 (13:22→13:52)
--- NOTE | 2020-08-14 13:29 | IPN ---
PROGRESS NOTE DATE: 08/14/2020 SUBJECTIVE: Mr. Ace is complaining of right-sided abdominal pain. It does not seem to be related to the fluid extravasation from yesterday as that is much improved. His abdomen is nontender to palpation. He feels nauseated, but has not vomited. OBJECTIVE: VITAL SIGNS: Show a T-max of 98.0 with a heart rate that ranges between 91 and 99 in sinus rhythm. Respiratory rate of 18 to 19 without the use of accessory muscles who is 91% to 94% saturated on 3 liters nasal cannula and whose blood pressure is ranging between 168/81 to 128/68. INTAKE AND OUTPUT: Over the past 24 hours has been recorded as 1880 in and 3565 out for a negativity of 1685 mL, which included 2000 mL from the PleurX catheter yesterday. He has not yet been drained today. His weight today is 127.9 kg compared to 128.3 kg on admission. RESPIRATORY: He still has decreased breath sounds on the right lower hemithorax with a dull percussion note, but it is much more resonant in the mid thorax than it was before. He has normal vesicular sounds on the left side. Percussion note is full to the diaphragm on the left side. CARDIAC: Without murmurs, clicks, gallops, or rubs. I cannot feel his PMI. S1 and S2 are normal. ABDOMEN: Soft and nontender. Bowel sounds are positive. He no longer has the pitting edema and induration along the anterior abdomen. However, there is still some induration in the posterior chest wall, which is also markedly decreased. EXTREMITIES: Show 1 to 2+ pretibial edema. No calf tenderness. No differential swelling of the upper extremities. Edema is unchanged from his admission edema. SKIN: Warm, dry, and perfused without cyanosis or mottling, including that of the nail beds and knees. NECK: Supple. There is no jugular venous distention. No subcutaneous emphysema. Trachea is midline. MOUTH: Shows the mucous membranes to be pink and moist. Lips and commisures are without lesions and no thrush. EYES: Show his pupils equal and reactive. Extraocular muscles are intact. Sclerae nonicteric. NEUROLOGIC: Shows II through XII intact. Normal gross motor, gross sensation intact. Gait is not tested. PSYCHIATRIC: Shows him to be awake, alert, and oriented x3 with appropriate mood and affect and conversational. LABORATORY DATA: His white count today is 7.1 with a hemoglobin and hematocrit of 10.1 and 34.0 essentially unchanged from yesterday with a platelet count of 222,000 and stable. Differential shows 80% neutrophils, 10% lymphocytes, and 6% monocytes. There are no immature forms and no toxic granulations. His electrolytes are normal with a decreasing total CO2, but still marginally elevated at 34. BUN and creatinine are 17 and 0.63 with a glucose of 128 and a calcium of 8.3. Magnesium is 2.0. Pathology still has not been reported back and there is no growth anaerobically. IMAGING DATA: His chest x-ray is improved over yesterday with more fluid absent from the right hemithorax. However, the right costophrenic angle is still quite blunted. There is a marked diminution in the fluid from yesterday. He has the large right-sided mass, which is unchanged. Lateral film again shows much improvement in the fluid and I suspect it will improve with drainage today. IMPRESSION: 1. Recurrent malignant pleural effusion right side improved with a PleurX catheter. 2. Squamous cell carcinoma. 3. Hypertension. 4. Impending respiratory failure, resolved. 5. Hyperlipidemia. 6. Chronic obstructive pulmonary disease. 7. Malplacement of PleurX catheter, resolved with replacement of PleurX catheter yesterday. 8. Nausea and vague abdominal pain of unknown cause. PLAN AND DISCUSSION: From a thoracic surgical point of view, we can teach him today or maybe tomorrow how to drain his PleurX catheter and then, he will be ready for discharge from my perspective. Because of his leg swelling, a duplex venous exam has been ordered by the medical service and the medical service is also undertaking an abdominal CT scan with contrast.
[2020-08-14] MEDS: SLF 3 ML SYR IV SCH ×2 (14:00→20:37)
--- NOTE | 2020-08-14 16:06 | REP ---
INDICATION: Abdominal pain, distension. COMPARISON: 02/27/2015 TECHNIQUE: Axial contrast-enhanced images from the lung bases to the pubic symphysis using oral and 100 cc Isovue 370 intravenous contrast material. Coronal and sagittal reformations obtained. This CT examination was performed using the following dose reduction techniques: Automated exposure control, adjustment of mA and/or kv according to the patient's size, and the use of iterative reconstruction technique. FINDINGS: There is evidence for a small focal area of thrombus within the abdominal aorta and thrombus/occlusion involving the origin and proximal portion of the superior mesenteric artery (series 201 images [id number]). These findings may be related to the patient's pain/symptoms which require investigation and are consistent with mesenteric artery thrombosis. The small and large bowel itself appears relatively normal although mild mucosal thickening involving loops of small bowel in the left mid abdomen are identified and nonspecific. There is no evidence for bowel obstruction or free air to suggest perforation. No ascites or drainable collection/abscess. Normal terminal ileum and appendix are identified in the right lower quadrant. Colonic and extensive sigmoid diverticulosis noted without evidence for acute diverticulitis. Pelvis demonstrates normal bladder and age-appropriate prostate/seminal vesicles. No ascites. No free air. No intraperitoneal or retroperitoneal adenopathy. Musculoskeletal structures are intact and without acute osseous abnormality. Asymmetric edema and inflammatory stranding in the subcutaneous tissues along the right flank warrants further evaluation. No associated drainable collection. These findings may be related to chest tube placement. Visualized lung bases again demonstrate a large presumed multiloculated right hydropneumothorax with small foci of gas in the contained anterior component as well as right middle lobe and right lower lobe consolidations/atelectasis. These findings may be minimally improved as compared to prior examination and a chest tube is identified extending along the posterior aspect of the right hemithorax. 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 2. Further nonacute findings through the abdomen and pelvis. 3. Pleuroparenchymal changes involving the visualized right lung base. <Electronically signed by Dayron Dumont > 08/14/20 [id number]
[2020-08-14] MEDS ORDERED: Ketorolac Tromethamine IV (17:03)
[2020-08-14] MEDS ORDERED: DOK1CAP7 PO (17:03)
[2020-08-14] MEDS ORDERED: LEVA12INH NEB ×2 (17:03)
[2020-08-14] MEDS ORDERED: HYDR-3715 PO (17:03)
[2020-08-14] MEDS ORDERED: HEPARIN SOD (PORCINE) 5000UNITS/ML 1ML VIAL/SYRINGE IV PRN (18:05)
[2020-08-14] MEDS ORDERED: HEPARIN DRIP 25,000 UNITS in IV 1 EA IV SCH (18:30)
[2020-08-14 18:38] LABS: HEMATOCRIT 32.2 % (42.0-52.0); HEMOGLOBIN 9.6 g/dl (13.5-17.5); MEAN CORPUSCULAR HEMOGLOBIN 25.9 pg (27.0-33.0); MEAN CORPUSCULAR HGB CONC 29.8 g/dl (32.0-36.5); PLATELET COUNT, AUTOMATED 212 10^3/uL (150-450); WHITE BLOOD COUNT 7.2 10^3/uL (4.0-10.0)
[2020-08-14] MEDS ORDERED: HEPA1INJ81 IV (18:45)
--- NOTE | 2020-08-14 19:02 | DS.PDOC ---
Discharge Summary General Date of Admission August 12, 2020 at 16:20 Date of Discharge August 14, 2020 Specialist/Consultants Involve CT surgery, Dr. Castellanos Discharge Summary PROCEDURES PERFORMED DURING STAY: PleurX catheter insertion on 08/12/2020. PleurX catheter removal on 08/13/2020. PleurX catheter reinsertion on 08/13/2020 ADMITTING DIAGNOSES: 1. Acute hypoxic respiratory failure 2/2 recurrent pleural effusion 2. Recurrent pleural effusion 2/2 stage 4 squamous cell carcinoma 3. Hypertension DISCHARGE DIAGNOSES: 1. SMA occlusion 2. Acute hypoxic respiratory failure 2/2 recurrent pleural effusion 3. Recurrent pleural effusion 2/2 stage 4 squamous cell carcinoma 4. Hypertension COMPLICATIONS/CHIEF COMPLAINT: Pleural Effusion. HISTORY OF PRESENT ILLNESS: Mr. Ace is a 65 year old male with recent diagnosis of stage 4 squamous cell carcinoma who was sent here from Dr. Galarza's office for recurrent pleural effusion. He was recently drained by IR and removed about 1.7L of fluid. When he was at Dr. Galarza's office, his CT chest demonstrated a large pleural effusion. Dr. Galarza has spoke with Dr. Castellanos about PleurX catheter. Patient was sent to the ER for evaluation. When I saw the patient, he was in mild distress. He was using respiratory muscles to breath. He tells me that his dyspnea has been going on for years and has gradually worsened. He could not pinpoint when it got acutely worse. He tells me that around January of last year, he started coughing up blood. In March, he was more dyspneic with activity and had trouble shovelling snow. One month ago, he had IR drainage of pleural effusion. He was also found to have squamous cell carcinoma. About a week ago, he was started on 2L of NC at home for his shortness of breath. Otherwise, patient is not normally on oxygen. Today, he was at Dr. Galarza's office for mapping to start treatment, but due to his respiratory status and pleural effusion, he was sent to the ED. Patient will be admitted for acute hypoxic respiratory failure 2/2 recurrent pleural effusion requiring. HOSPITAL COURSE: PleurX catheter was inserted on 08/12/2020 and drained 1L of fluid. Fluid appears to be exudative (Fluid protein 4.1, Total protein 6.5). There were still more fluid to be drained, but planned to slowly drain to prevent re-expansion pulmonary edema. The following day, he had pitting edema on the right abdomen. The side holes of the catheter was in the soft tissue causing abdominal wall pitting edema. Dr. Castellanos replaced the PleurX catheter 08/13/2020. He drained another 1.95L of fluid. Today, Dr. Castellanos evaluated patient. Recommended that patient be taught how to use the PleurX catheter. Possible discharge in the next few days from CT surgery standpoint. Otherwise, patient continues to complain of right abdominal pain. Ordered for CT of abd/pelvis which demonstrate SMA occlusion. We do not have vascular surgery here. Spoke with [facility], Dr. Syed. Recommended heparinizing patient and having their medicine team admit. I discussed the case with Dr. Corley who is the admitting physician. Patient will be transferred to [place]. DISCHARGE MEDICATIONS: Please see below. ALLERGIES: Please see below. PHYSICAL EXAMINATION ON DISCHARGE: VITAL SIGNS: Please see below. GENERAL: Comfortable, no apparent distress HEENT: EOMI, sclera clear NECK: Supple CARDIOVASCULAR EXAMINATION: Regular rate, regular rhythm RESPIRATORY EXAMINATION: Coarse breath sounds ABDOMINAL EXAMINATION: Right sided abdominal pitting edema and tenderness EXTREMITIES: Bilateral pitting edema NEUROLOGICAL EXAMINATION: CN 3-12 grossly intact PSYCHIATRIC EXAMINATION: Normal mood and affect LABORATORY DATA: Please see below. IMAGING: Radiologist interpretation CT abd/pelvis 08/14/2020 FINDINGS: There is evidence for a small focal area of thrombus within the abdominal aorta and thrombus/occlusion involving the origin and proximal portion of the superior mesenteric artery (series 201 images 44-62). These findings may be related to the patient's pain/symptoms which require investigation and are consistent with mesenteric artery thrombosis. The small and large bowel itself appears relatively normal although mild mucosal thickening involving loops of small bowel in the left mid abdomen are identified and nonspecific. There is no evidence for bowel obstruction or free air to suggest perforation. No ascites or drainable collection/abscess. Normal terminal ileum and appendix are identified in the right lower quadrant. Colonic and extensive sigmoid diverticulosis noted without evidence for acute diverticulitis. Pelvis demonstrates normal bladder and age-appropriate prostate/seminal vesicl es. No ascites. No free air. No intraperitoneal or retroperitoneal adenopathy. Musculoskeletal structures are intact and without acute osseous abnormality. Asymmetric edema and inflammatory stranding in the subcutaneous tissues along the right flank warrants further evaluation. No associated drainable collection. These findings may be related to chest tube placement. Visualized lung bases again demonstrate a large presumed multiloculated right hydropneumothorax with small foci of gas in the contained anterior component as well as right middle lobe and right lower lobe consolidations/atelectasis. These findings may be minimally improved as compared to prior examination and a chest tube is identified extending along the posterior aspect of the right hemithorax. 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 2. Further nonacute findings through the abdomen and pelvis. 3. Pleuroparenchymal changes involving the visualized right lung base. CXR 08/11/2020 Near complete opacification of the right hemithorax essentially unchanged. CT chest 08/13/2020 Moderate right pleural effusion persists post PleurX catheter placement. Chest wall edema, side holes in the extra thoracic soft tissues, and question small chest wall hematoma. CXR 08/14/2020 1. Decreased right-sided pleural effusion. Continued evidence for right-sided hilar mass, right lower lobe airspace disease and small left pleural effusion with trace left basilar atelectasis. PROGNOSIS: Guarded ACTIVITY: As tolerated DIET: NPO DISCHARGE PLAN: Transfer to [place] DISPOSITION: Transfer to [place] DISCHARGE INSTRUCTIONS: 1. NPO until seen by surgery ITEMS TO FOLLOWUP ON ON OUTPATIENT: 1. Follow up with oncology (Dr. Mendoza) and radiation oncology (Dr. Galarza) for stage 4 squamous cell carcinoma DISCHARGE CONDITION: Stable. Total time spent on discharge planning, discharge summary, and medication reconciliation: 65 minutes Vital Signs/I&Os Vital Signs Date Time Temp Pulse Resp B/P (MAP) Pulse Ox O2 Delivery O2 Flow Rate FiO2 08/14/20 12:30 92 Nasal Cannula 2.0 08/14/20 12:22 18 08/14/20 12:00 97.0 93 133/66 (88) I&O- Last 24 Hours up to 6 AM 08/14/20 06:00 Intake Total 1880 ml Output Total 3165 ml Balance -1285 ml Laboratory Data Labs 24H Laboratory Tests 2 08/14/20 05:02: Immature Granulocyte % (Auto) 0.4, Neutrophils (%) (Auto) 80.1H, Lymphocytes (%) (Auto) 10.6L, Monocytes (%) (Auto) 6.2, Eosinophils (%) (Auto) 2.3, Basophils (%) (Auto) 0.4, Neutrophils # (Auto) 5.7, Lymphocytes # (Auto) 0.8L, Monocytes # (Auto) 0.4, Eosinophils # (Auto) 0.2, Basophils # (Auto) 0.0, Nucleated Red Blood Cells % (auto) 0.0, Anion Gap 6L, Glomerular Filtration Rate > 60.0, Calcium Level 8.3L, Magnesium Level 2.0 08/14/20 13:05: Bedside Glucose (Misc Panel) 136H CBC/BMP Laboratory Tests 08/14/20 05:02 FSBS Laboratory Tests Test 08/14/20 13:05 Range/Units Bedside Glucose (Misc Panel) 136 80-115 MG/DL Microbiology Microbiology 08/12/20 Acid Fast Stain, Received Pending 08/12/20 Mycobacterial Culture, Received Pending 08/12/20 Fungal Smear, Received Pending 08/12/20 Fungal Culture, Received Pending 08/12/20 Gram Stain - Final, Complete 08/12/20 Anaerobic Culture - Final, Complete 08/12/20 Body Fluid Culture, Received Pending Discharge Medications Scheduled Aspirin (Aspirin EC) 325 Mg Tablet.dr, 325 MG PO DAILY, (Reported) Cholecalciferol (Vitamin D3) (Vitamin D3) 1,000 Unit Tablet, 1,000 UNITS PO DAILY, (Reported) Docusate Sodium (Dok) 100 Mg Capsule, 100 MG PO BID Ferrous Sulfate (Iron) 325 Mg Tablet, 325 MG PO DAILY, (Reported) Heparin Sodium,Porcine/D5w (Heparin 25,000 Unit/250 ml-D5w) 25,000 Unit/250 Ml Iv.soln, 1 INJ IV ONCE Levalbuterol Hydrochloride (Xopenex Concentrate) 1.25 Mg/0.5 Ml Vial.neb, 1.25 MG NEB RQ6H Losartan Potassium (Losartan Potassium) 50 Mg Tab, 50 MG PO DAILY, (Reported) [Ketorolac Tromethamine] 30 MG/ML INJ, 30 MG IV Q6H Scheduled PRN Albuterol Sulfate (Proair Hfa) 8.5 Gm Hfa.aer.ad, 2 PUFF INH Q4H PRN for SOB/WHEEZING, (Reported) Hydrocodone/Acetaminophen (Hydrocodone-Acetamin 5-325 mg) 1 Each Tablet, 1 TAB PO Q3H PRN for MILD PAIN (PS 1-4) Levalbuterol Hydrochloride (Xopenex Concentrate) 1.25 Mg/0.5 Ml Vial.neb, 1.25 MG NEB Q2HP PRN for WHEEZING Allergies Coded Allergies: No Known Allergies (Unverified , 09/07/12) ZARIA RAMOS DO August 14, 2020 16:45
== END 2020-08-14 22:07 | disposition short-term general hospital (02) | DRG 180 ==
LOC: M ED 16:07 → M ED INP 16:20 → ENRESERV 16:30 → M PCU 17:38
PROVIDERS: ADMIT Internal Medicine; ATTEND Internal Medicine
PROC: 0W9900Z Drainage of Right Pleural Cavity with Drainage Device, Open Approach (ICD-10-PCS; principal; 2020-08-12)
PROC: 0W9900Z Drainage of Right Pleural Cavity with Drainage Device, Open Approach (ICD-10-PCS; 2020-08-13)
DX: C34.11 Malignant neoplasm of upper lobe, right bronchus or lung (principal); J96.01 Acute respiratory failure with hypoxia; K55.069 Acute infarction of intestine, part and extent unspecified; J91.0 Malignant pleural effusion; T85.628A Displacement of other specified internal prosthetic devices, implants and grafts, initial encounter; J44.9 Chronic obstructive pulmonary disease, unspecified; I10 Essential (primary) hypertension; E78.5 Hyperlipidemia, unspecified; G62.9 Polyneuropathy, unspecified; Z66 Do not resuscitate; Z87.81 Personal history of (healed) traumatic fracture; Z87.891 Personal history of nicotine dependence; Z20.822 Contact with and (suspected) exposure to COVID-19; Z99.81 Dependence on supplemental oxygen; Y83.1 Surgical operation with implant of artificial internal device as the cause of abnormal reaction of the patient, or of later complication, without mention of misadventure at the time of the procedure

== ENCOUNTER 2020-08-13 14:00 | Outpatient (RCR) | payer OTHER ==
--- NOTE | 2020-08-12 16:08 | RADENCPD ---
Date/Time of Encounter Date of Encounter: August 12, 2020 Time of Encounter: 16:01 Encounter Tayo came in for simulation today for his locally advanced RUL NSCLC. He reports that he had 1.7L of fluid drained in IR but that he remains quite orthopneic and SOB. He is on 2L NC O2 at home. Without O2 his resting sats are in the low 80s. During the simulation procedure while supine he had to have his O2 increased to 6L to tolerate the position. The CT scan performed revealed a very large effusion. VS taken with supplemental O2 were WNL. I suggested he present to the ED for this as he would surely benefit from a pleurX catheter for drainage. Catheter placement would also facilitate RT to his mass as I explained I cannot treat him adequately with so much intervening fluid and collapsed lung (the risk of pulmonary parenchymal toxicity would be especially high with RT given in this state). I discussed the situation with Dr. Castellanos by phone who agreed to see him and evaluate for catheter placement. Patient agreed to go to the ED. ED charge nurse notified. NATALIE ROTHMAN MD August 12, 2020 16:08
--- NOTE | 2020-08-12 19:32 | REP ---
INDICATION: pleural effusoin COMPARISON: None. TECHNIQUE: Portable AP view of the chest FINDINGS: Near complete opacification of the right hemithorax which includes right hilar mass and presumed underlying areas of consolidation and effusion are again suspected. A right-sided chest tube has been placed and the level of opacity is relatively unchanged as compared to prior examination no pneumothorax. Left hemithorax is relatively clear/stable.. IMPRESSION: Right chest tube placed. Near complete opacification of the right hemithorax again noted. <Electronically signed by Dayorn Dumont > 08/12/201928
[2020-08-14] MEDS ORDERED: ISOVUE-370 76% 100ML VIAL As Ordered ONE (12:44)
[2020-08-14] MEDS ORDERED: Ketorolac Tromethamine IV (17:03)
[2020-08-14] MEDS ORDERED: LEVA12INH NEB ×2 (17:03)
[2020-08-14] MEDS ORDERED: DOK1CAP7 PO (17:03)
[2020-08-14] MEDS ORDERED: HYDR-3715 PO (17:03)
[2020-08-14] MEDS ORDERED: HEPA1INJ81 IV (18:45)
== END 2020-08-16 ==
LOC: M ONCR 14:00
PROVIDERS: ATTEND General Practice
DX: C34.11 Malignant neoplasm of upper lobe, right bronchus or lung (principal)
CPT/HCPCS: 71045; Q9967

== ENCOUNTER 2020-09-09 13:11 | Outpatient (RCR) | payer OTHER ==
[~2020-09-09 13:11] MED LIST changes: +DOK1CAP7 PO; +ELIQ5TAB PO; +HEPA1INJ81 IV; +HYDR-3715 PO; +Ketorolac Tromethamine IV; +LEVA12INH NEB; +TORS10TA3 PO
[2020-09-16] MEDS ORDERED: ONDA-83 PO (13:08)
== END 2020-09-15 ==
LOC: M ONCR 13:11
PROVIDERS: ATTEND General Practice
DX: C34.11 Malignant neoplasm of upper lobe, right bronchus or lung (principal)

== ENCOUNTER 2020-11-23 12:34 | Inpatient (IN) | payer OTHER, MEDICAID ==
[~2020-11-23] VITALS: Ht 188 cm; Wt 90.3 kg
[2020-11-23] VITALS (16 sets, daily range): BP systolic 73–104; BP diastolic 39–55
[~2020-11-23 12:34] MED LIST changes: -FERR1TAB8 PO; -OXYC1TAB23 PO
[2020-11-23] MEDS ORDERED: OXYC1TAB23 PO ×2 (13:05→14:55)
[2020-11-23 13:26] LABS: HEMATOCRIT 32.3 % (42.0-52.0); HEMOGLOBIN 9.6 g/dl (13.5-17.5); MEAN CORPUSCULAR HEMOGLOBIN 25.1 pg (27.0-33.0); MEAN CORPUSCULAR HGB CONC 29.7 g/dl (32.0-36.5); MEAN CORPUSCULAR VOLUME 84.6 fl (80.0-96.0); PLATELET COUNT, AUTOMATED 193 10^3/uL (150-450); RED BLOOD COUNT 3.82 10^6/uL (4.30-6.10); WHITE BLOOD COUNT 7.4 10^3/uL (4.0-10.0)
[2020-11-23] MEDS ORDERED: PIPERACILLIN/TAZOBACTAM SOD 4.5 GM in D5W MINI-BAG PLUS 50 ML IV ONE (13:35)
[2020-11-23] MEDS ORDERED: NS 3,270 ML in IV 1 EA IV ONE (13:35)
--- NOTE | 2020-11-23 13:50 | REP ---
INDICATION: CHEST PAIN. COMPARISON: 08/14/2020. TECHNIQUE: Single portable AP view of the chest was performed. FINDINGS: Underlying right lung mass is noted. There is increased right pleural fluid and right lung infiltrate. Two new nodules are seen inferiorly on the left, the larger measuring 2.3 cm. No other gross acute changes seen. IMPRESSION: Increased right pleural effusion and infiltrate. 2 new nodules left lung base. <Electronically signed by Kushal Owens > 11/23/20 1613
[2020-11-23 13:58] LABS: ALT/SGPT 17 U/L (12-78); BILIRUBIN,DIRECT 0.2 MG/DL (0.0-0.2); BILIRUBIN,TOTAL 0.5 MG/DL (0.2-1.0); BLOOD UREA NITROGEN 47 MG/DL (7-18); CARBON DIOXIDE LEVEL 34 MEQ/L (21-32); CHLORIDE LEVEL 94 MEQ/L (98-107); CK-MB VALUE MASS 9.6 NG/ML (<3.6); CPK CREATINE PHOSPHOKINASE 156 U/L (39-308); CREATININE FOR GFR 2.83 MG/DL (0.70-1.30); FREE T4 1.12 NG/DL (0.76-1.46); GLOMERULAR FILTRATION RATE 23.9 (>49); GLUCOSE, FASTING 98 MG/DL (70-100); MB/CK RELATIVE INDEX 6.15 (< OR =4); POTASSIUM SERUM 4.8 MEQ/L (3.5-5.1); SODIUM LEVEL 133 MEQ/L (136-145); TOTAL PROTEIN 5.4 GM/DL (6.4-8.2); TROPONIN I < 0.02 NG/ML (< 0.10)
[2020-11-23 14:06] LABS: LYMPHOCYTES 7 % (16-44); METAMYELOCYTES 2 % (0-0); MONOCYTES 2 % (0-5); NEUTROPHILS 86 % (28-66); PLATELET ESTIMATE NORMAL (NORMAL)
[2020-11-23 14:07] LABS: ANISOCYTOSIS 1+; OVALOCYTES 1+
[2020-11-23 14:10] LABS: ABG BASE EXCESS 3.6 (-2.0-2.0); ABG HCO3 32.6 MEQ/L (22.0-26.0); ABG O2 SATURATION 88.7 % (95.0-99.0); ABG STANDARD HCO3 27.6 MEQ/L (22.0-26.0)
[2020-11-23 14:12] LABS: ABG pH (ARTERIAL) 7.237 UNITS (7.350-7.450)
[2020-11-23 14:13] LABS: ABG PARTIAL PRESSURE CO2 78.3 mmHg (35.0-45.0)
[2020-11-23] MEDS ORDERED: LOSA50TA88 PO (14:55)
[2020-11-23] MEDS ORDERED: PROAAER10 INH (14:55)
[2020-11-23] MEDS ORDERED: ELIQ5TAB PO (14:55)
[2020-11-23] MEDS ORDERED: D31000TA2 PO (14:56)
[2020-11-23] MEDS ORDERED: FERR1TAB8 PO (14:57)
[2020-11-23] MEDS ORDERED: HOME MED LIST COMPLETE! XX SCH (15:00)
[2020-11-23] MEDS ORDERED: MAALOX 30 ML SUSP *UDC PO PRN (15:10)
[2020-11-23] MEDS ORDERED: VANCOMYCIN HCL 1,000 MG, VIAL MATE ADAPTER 1 EACH in NS 250 ML IV SCH (15:10)
[2020-11-23] MEDS ORDERED: MOM 30ML SUSPENSION UDC PO PRN (15:10)
[2020-11-23] MEDS ORDERED: IPRATROPIUM 0.5MG/ALBUTEROL 2.5MG INH SOL UD 3ML (DUONEB) NEB PRN (15:25)
--- NOTE | 2020-11-23 15:33 | HPEPDOC ---
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 In the emergency room, patient had reported that he was experiencing chills on Sunday. Denies any fevers at home. He reported that while at home. He has not experience any shortness of breath, cough or chest pain. However, in the emergency room he has been coughing. Denies any nausea, vomiting, abdominal pain, constipation, diarrhea, or urinary discomfort. At home, patient has a chronic Pleurx catheter which he drains every other day and reports he removes about fiber 550-650 mL of fluid. Past Medical History: HTN, DLP, COPD, Stage IV Squamous Cell CA (Refused chemotherapy, on radiation therapy), SMA occlusion (on Eliquis), Neuropathy Past Surgical History: Left femur fracture s/p ORIF Tendon repair of left hand Allergies: See below Medications: See below Family History: - Mother with history of skin cancer in father with a history of dementia Social History: - Denies the use of alcohol or illicit drugs; patient reports that he quit smoking in 2012, but was a smoker of 40 years at 2 packs per day - Denies recent travel or sick contacts - Lives alone Review of Systems: 10 point review of systems complete, all negative otherwise stated in HPI Physical exam: - Vitals: BP [87/50], HR [104], RR [17], Sat [96%NC2L], Temp [97.7F] - General: Sitting up in bed, Speaking in full sentences, AAOx3 - HEENT: NC, AT, PERRLA - CVS: RRR, +S1S2 - Lungs: Diminished lung sounds at right lung base, no appreciable crackles, rhonchi or wheezing - Abdomen: Soft, Non-distended, Non-tender - Extremities: 1-2+ pitting edema, No calf tenderness - Neuro: No focal motor or sensory deficit - Skin: No visible rashes Labs: See below Imaging: CXR 11/23: Increased right pleural effusion and infiltrate. 2 new nodules left lung base. EKG: See below Assessment and Plan: Sepsis - likely 2/2 Pneumonia - Patient presented to emergency room at the direction of his PCP for hypotension - In the emergency room, patient was coughing and short of breath requiring supplemental oxygen - No significant leukocytosis; Neutrophil predominance / Bandemia noted - Imaging noted above - Will check blood cultures / sputum cultures / respiratory panel / PCT / MRSA screen - Will check CT chest / abdomen / pelvis - Will start Zosyn / Vancomycin (Day #1) - Consulted cardiothoracic surgery and critical care Acute on chronic hypercapnic respiratory failure - Initial ABG reveals elevated pCO2 from baseline of 56 - c/w BIPAP; will repeat ABG in 1 hour - Consulted pulmonology / critical care for BIPAP management assistance Hypotension - c/w IV fluids as stated above Lactic acidosis - c/w IV fluid hydration CAT - Will check urinalysis, urine electrolytes - Will check CT abdomen / pelvis - Will hold all nephrotoxic medications - c/w IV fluid hydration Hyponatremia - likely 2/2 hypotonic hypovolemic etiology - Will check osmolality / urine electrolytes - Will start IV fluid hydration HTN - Patient is currently hypotensive - Will hold Lisinopril DLP - currently not on medications COPD - No evidence of exacerbation - Continue with inhaled therapy as ordered Stage IV Squamous Cell CA - Patient has refused chemotherapy, currently is on radiation therapy - Discussed goals of care with patient he reports that he wants to be DO NOT RESUSCITATE and DO NOT INTUBATE - Reports that he does not want to be connected to a ventilator and doesnt want chest compressions - Patient reports he wants to be comfortable SMA occlusion - c/w Eliquis Neuropathy - Currently not on medications Gastrointestinal prophylaxis - Will start Protonix DVT prophylaxis - Will c/w full anticoagulation with Eliquis Code Status: - Discussed goals of care / code status in the ER - Patient does not want to be intubated / receive chest compression - DNR / DNI Vital Signs Vital Signs Date Time Temp Pulse Resp B/P (MAP) Pulse Ox O2 Delivery O2 Flow Rate FiO2 11/23/20 15:14 24 86/47 (60) 83 Nasal Cannula 6.0 11/23/20 15:05 105 11/23/20 14:37 97.3 11/23/20 14:30 60 Laboratory Data Labs 24H Laboratory Tests 2 11/23/20 13:07: Neutrophils (%) (Auto) , Nucleated Red Blood Cells % (auto) 0.0, Neutrophils 86H, Band Neutrophils 3, Lymphocytes (Manual) 7L, Monocytes (Manual) 2, Metamyelocytes 2H, Anisocytosis 1+, Ovalocytes 1+, Platelet Estimate NORMAL, Anion Gap 5L, Glomerular Filtration Rate 23.9L, Lactic Acid Level 2.4*H, Calcium Level 8.0L, Total Bilirubin 0.5, Direct Bilirubin 0.2, Aspartate Amino Transf (AST/SGOT) 29, Alanine Aminotransferase (ALT/SGPT) 17, Alkaline Phosphatase 77, Total Creatine Kinase 156, Creatine Kinase MB 9.6H, Creatine Kinase MB Relative Index 6.15H, Troponin I < 0.02, Total Protein 5.4L, Albumin 2.0L, Albumin/Globulin Ratio 0.6, Thyroid Stimulating Hormone (TSH) 1.070, Free Thyroxine 1.12 11/23/20 13:58: Blood Gas Bicarbonate Standard 27.6H, Arterial Blood pH 7.237*L, Arterial Blood Partial Pressure CO2 78.3*H, Arterial Blood Partial Pressure O2 64.0L, Arterial Blood Total CO2 35.0H, Arterial Blood HCO3 32.6H, Arterial Blood Base Excess 3.6H, Arterial Blood Oxygen Saturation 88.7L CBC/BMP Laboratory Tests 11/23/20 13:07 Microbiology Microbiology 11/23/20 Respiratory Virus Panel (PCR) (KAYODE) - Final, Complete 11/23/20 Blood Culture, Received Pending 11/23/20 Blood Culture, Received Pending Home Medications Scheduled Apixaban (Eliquis) 5 Mg Tablet, 5 MG PO BID Cholecalciferol (Vitamin D3) (Vitamin D3) 1,000 Unit Tablet, 1,000 UNITS PO DA YSABEL Ferrous Sulfate (Ferrous Sulfate) 325 Mg Tablet, 325 MG PO DAILY Losartan Potassium (Losartan Potassium) 50 Mg Tablet, 50 MG PO DAILY Oxycodone HCl/Acetaminophen (Oxycodone-Acetaminophen 5-325) 1 Each Tablet, 1 TAB PO QHS Scheduled PRN Albuterol Sulfate (Proair Hfa) 8.5 Gm Hfa.aer.ad, 2 PUFF INH Q4H PRN for SOB/WHEEZING Ondansetron HCl (Ondansetron HCl) 4 Mg Tablet, 1 TAB PO TIDP PRN for nausea/vomiting Allergies Coded Allergies: No Known Allergies (Unverified , 09/07/12) JOSE RAUL CORLEY MD Nov 23, 2020 15:33
--- NOTE | 2020-11-23 15:49 | CR.PDOC ---
General Date of Consultation: Nov 23, 2020 Referring Provider: JOSE RAUL CORLEY MD Attending Physician: JOSE RAUL CORLEY MD Consultation REASON FOR CONSULTATION/CHIEF COMPLAINT: Hypotension and hypoxia. 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 He was in his PCP office today for routine check up and found to have BP of 80/45. Upon arrival to the ED, patient was found to be extremely short of breath and significant hypoxia. No meaningful history was able to be obtained as patient is currently on BiPAP and cannot converse. However, he did confirmed that he is DNR/DNI code status. He doesn't have significant leukocytosis but has 3% bands. Other significant lab findings are new finding of CAT with elevated Cr and lactic acidosis. CXR with significant atelectasis of RLL worsened from imaging done back on 06/18/2020. ABG with decompensated respiratory acidosis. He is currently getting IVF 30ml/kg, vancomycin and zosyn. He's on BiPAP 02/21. ICU was consulted for further management. Medical History 1. COPD 2. Hypertension 3. Stage IV squamous cell carcinoma of the right lung 4. Hyperlipidemia 5. Peripheral neuropathy Surgical History 1. Left femur intertrochanteric/subtrochanteric fracture with ORIF with IM juan in 2012 2. Tendon repair of left hand Family History Father: History of skin cancer Mother: History of dementia Social History * Smoker: former Smoker (Quit in 2013, smoked for about 40 years, 2ppd) Alcohol: other (socially) Drugs: denies. ALLERGIES: Please see below. HOME MEDICATIONS: Please see below. REVIEW OF SYSTEMS: Cannot be done as patient cannot converse full sentence due to BiPAP and respiratory failure. PHYSICAL EXAMINATION: VITAL SIGNS: Please see below. GENERAL APPEARANCE: Alert and oriented, in severe acute distress. HEENT: No evidence of JVD or dilated neck veins, no cervical adenopathy. RESPIRATORY: Diminished breath sound bilaterally most prominently on the right lower lobe with no evidence of wheezing or rhonchi. CARDIOVASCULAR: Very distant but no extra sounds or murmur. ABDOMEN: Soft nontender to deep palpation, hypoactive bowel sounds. EXTREMITIES: Pitting edema of the lower extremity up to the level of mid wood. NEUROLOGICAL: No evidence of focal neurological deficit. PSYCHIATRIC: Alert and oriented. LABORATORY DATA: Please see below. 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 1. Severe sepsis with rapid progression of septic shock if he does not respond to fluid. -Patient is currently getting 30 cc/kg of isotonic crystalloid. He has been started on vancomycin and Zosyn for HAP/postobstructive pneumonia. If he does not respond to IV fluid resuscitation, he will be started on vasopressor support. 2. Postobstructive pneumonia of the right lung. -Management as above. Recommend to obtain blood and sputum culture. He should also get the right side of the chest drain from the Pleurx catheter and send the fluid for analysis and culture. 3. CAT -Secondary to severe sepsis present on admission. Patient is currently getting IV fluid resuscitation. 4. Acute hypercapnic and hypoxic respiratory failure -BiPAP 12/6 with FiO2 45%. Repeat ABG in about 4 to 6-hour and assess for clinical response. 5. Mixed respiratory and metabolic acidosis -Management as above. 6. Lactic acidosis -Secondary to severe sepsis/septic shock. He is getting fluid. 7. History of stage IV metastatic squamous cell lung cancer of the right -He is currently getting palliative radiation. I believe he would benefit from discussions of goals of care as his prognosis extremely poor. He may be a candidate for hospice. 8. Right malignant pleural effusion status post Pleurx catheter 9. History of SMA occlusion -He was on Eliquis at home. I recommend we will hold this medication given his kidney dysfunction. We can potentially restart him on heparin drip tomorrow. Critical care time excluding procedures is 50 minutes. Vital Signs/I&O Vital Signs Date Time Temp Pulse Resp B/P (MAP) Pulse Ox O2 Delivery O2 Flow Rate FiO2 11/23/20 15:29 100 21 100 NIPPV (BIPAP/CPAP) 45 11/23/20 15:14 86/47 (60) 6.0 11/23/20 14:37 97.3 Laboratory Data Labs 24H Laboratory Tests 2 11/23/20 13:07: Neutrophils (%) (Auto) , Nucleated Red Blood Cells % (auto) 0.0, Neutrophils 86H, Band Neutrophils 3, Lymphocytes (Manual) 7L, Monocytes (Manual) 2, Metamyelocytes 2H, Anisocytosis 1+, Ovalocytes 1+, Platelet Estimate NORMAL, Anion Gap 5L, Glomerular Filtration Rate 23.9L, Lactic Acid Level 2.4*H, Calcium Level 8.0L, Total Bilirubin 0.5, Direct Bilirubin 0.2, Aspartate Amino Transf (AST/SGOT) 29, Alanine Aminotransferase (ALT/SGPT) 17, Alkaline Phosphatase 77, Total Creatine Kinase 156, Creatine Kinase MB 9.6H, Creatine Kinase MB Relative Index 6.15H, Troponin I < 0.02, Total Protein 5.4L, Albumin 2.0L, Albumin/Globulin Ratio 0.6, Thyroid Stimulating Hormone (TSH) 1.070, Free Thyroxine 1.12 11/23/20 13:58: Blood Gas Bicarbonate Standard 27.6H, Arterial Blood pH 7.237*L, Arterial Blood Partial Pressure CO2 78.3*H, Arterial Blood Partial Pressure O2 64.0L, Arterial Blood Total CO2 35.0H, Arterial Blood HCO3 32.6H, Arterial Blood Base Excess 3.6H, Arterial Blood Oxygen Saturation 88.7L CBC/BMP Laboratory Tests 11/23/20 13:07 Microbiology Microbiology 11/23/20 Respiratory Virus Panel (PCR) ([facility]) - Final, Complete 11/23/20 Blood Culture, Received Pending 11/23/20 Blood Culture, Received Pending Allergies Coded Allergies: No Known Allergies (Unverified , 09/07/12) Home Medications Scheduled Apixaban (Eliquis) 5 Mg Tablet, 5 MG PO BID, (Reported) Cholecalciferol (Vitamin D3) (Vitamin D3) 1,000 Unit Tablet, 1,000 UNITS PO DAILY, (Reported) Ferrous Sulfate (Ferrous Sulfate) 325 Mg Tablet, 325 MG PO DAILY, (Reported) Losartan Potassium (Losartan Potassium) 50 Mg Tablet, 50 MG PO DAILY, (Reported) Oxycodone HCl/Acetaminophen (Oxycodone-Acetaminophen 5-325) 1 Each Tablet, 1 TAB PO QHS, (Reported) Scheduled PRN Albuterol Sulfate (Proair Hfa) 8.5 Gm Hfa.aer.ad, 2 PUFF INH Q4H PRN for SOB/WHEEZING, (Reported) Ondansetron HCl (Ondansetron HCl) 4 Mg Tablet, 1 TAB PO TIDP PRN for nausea/vomiting, #60 TIA TAM MD Nov 23, 2020 15:49
[2020-11-23 15:52] LABS: ABG BASE EXCESS 1.9 (-2.0-2.0); ABG HCO3 30.4 MEQ/L (22.0-26.0); ABG O2 SATURATION 89.9 % (95.0-99.0); ABG TOTAL CO2 32.6 MEQ/L (23.0-31.0)
[2020-11-23 15:53] LABS: ABG PARTIAL PRESSURE CO2 72.5 mmHg (35.0-45.0)
[2020-11-23] MEDS ORDERED: VANCOMYCIN HCL 1,000 MG, VIAL MATE ADAPTER 1 EACH in NS 250 ML IV ONE ×2 (16:00→17:00)
--- NOTE | 2020-11-23 16:14 | REP ---
INDICATION: Hypotension. COMPARISON: Multiple latest 08/14/2020 TECHNIQUE: Standard helical technique without intravenous or oral bowel preparatory contrast administration. This causes exam limitations. FINDINGS: The right-sided pleural effusion seen previously has gotten smaller. There is a small pericardial effusion. There are 2 new left lung base nodules 1 measures 1.6 cm and the other measures 1.3 cm but partially imaged. There is a right-sided thoracotomy tube status quo. Limited evaluation of the solid intra-abdominal organs shows no gross change from the prior exam. There is no evidence of gross change seen involving the spleen, pancreas, adrenal glands, or kidneys. Respiratory motion artifact obscures the detail. There is no gross change in appearance of the abdominal aorta or para-aortic regions. There is no gross change in appearance of the bowel loops or the mesenteries. There is no evidence of free fluid or free air. There is a small amount of dense material in the gallbladder likely secondary to vicarious excretion of previously injected intravenous contrast versus newly developed dense sludge. There is no significant change in appearance of the imaged osseous structures. IMPRESSION: 1. New left lung nodules as described above suspicious for metastatic disease. 2. Right pleural effusion and pericardial effusion as described above. 3. Other findings as described above. <Electronically signed by Sebastian Sheehan > 11/23/20 [id number]
--- NOTE | 2020-11-23 16:21 | REP ---
INDICATION: SOB / Cough COMPARISON: 08/13/2020 latest prior TECHNIQUE: Standard helical technique without intravenous contrast administration FINDINGS: There is no significant change in appearance of the mediastinum or pulmonary greg. There is a right-sided thoracotomy tube status quo. The large area of consolidation seen previously in the right lung has increased rather significantly. In addition, multiple low-density areas are seen throughout the right hemithorax and having higher than water density Hounsfield unit readings. Scattered air densities and air bronchograms are seen throughout the right hemithorax. There is a small amount of aerated lung in the right lung apex. There are multiple new left lung nodules the largest is in the left lower lobe and measures 2.5 cm. Respiratory motion artifact obscures the fine detail in the mid and upper lung zones. Additional nodules may be present. There is no significant change in appearance of the imaged osseous structures. There are multiple vertebral body compression deformities of various stages. IMPRESSION: 1. Significantly worsened right lung field findings as described above and possibly with loculated pleural fluid and or areas of empyema. 2. New left lung nodules consistent with metastatic disease. 3. Other findings and limitations as described above. <Electronically signed by Sebastian Sheehan > 11/23/20 [id number]
[2020-11-23 17:11] LABS: CORTISOL BASELINE 46.4 UG/DL (4.3-22.4)
--- NOTE | 2020-11-23 17:57 | ECGEPIP ---
[facility] - ED Test Date: 2020-11-23 Pat Name: DIDI CLINE Department: Room: - Gender: Male Pump Operator: RIVERA : 1955 Requested By: LYLY Jesus Order Number: [id number] Reading MD: Nayana De Santiago Measurements Intervals Mamou Rate: 107 P: 72 AZ: 124 QRS: 3 QRSD: 96 T: 66 QT: 354 QTc: 472 Interpretive Statements Sinus tachycardia with premature atrial complexes NSTTW abnormalities No prior Electronically Signed on 11-23-2020 17:57:44 EDT by Nayana De Santiago
[2020-11-23] MEDS ORDERED: LR 1,000 ML IV SCH (19:40)
[2020-11-23 20:22] LABS: CK-MB VALUE MASS 12.9 NG/ML (<3.6); CPK CREATINE PHOSPHOKINASE 206 U/L (39-308); MB/CK RELATIVE INDEX 6.26 (< OR =4); TROPONIN I < 0.02 NG/ML (< 0.10)
[2020-11-23] MEDS: PIPERACILLIN/TAZOBACTAM SOD 3.375 GM in D5W MINI-BAG PLUS 50 ML IV SCH (20:43)
--- NOTE | 2020-11-23 20:43 | IPNPDOC ---
Text Note Date of Service The patient was seen on 11/23/20. NOTE time of service 830pm I was informed by TITUS Harrington that the patient's MAP was in the 60s despite receiving the initial bolus of >3L. He has only produced 75ml of urine. At the time of my face to face visit. The patient denied feeling more short of breath but c/o pain all over. He declined central line placement for pressors and confirmed that his sister is his health care proxy. 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 #Septic Shock - start LR at 70ml/H for maintenance / start levophed peripherally / attempt to place the patient in Trendelenburg position #Oliguria - armas #Generalized pain - IV tylenol VS,Fishbone, I+O VS, Fishbone, I+O Laboratory Tests 11/23/20 13:07 Vital Signs Date Time Temp Pulse Resp B/P (MAP) Pulse Ox O2 Delivery O2 Flow Rate FiO2 11/23/20 19:42 100 18 84/48 (60) 99 NIPPV (BIPAP/CPAP) 55 11/23/20 15:14 6.0 11/23/20 14:37 97.3 JENIFER SY MD Nov 23, 2020 20:43
[2020-11-23] MEDS ORDERED: ACETAMINOPHEN *IV* 1,000 MG in IV 1 EA IV ONE (20:45)
[2020-11-23] MEDS: DOCUSATE SODIUM 100MG CAPSULE PO SCH (20:47)
[2020-11-23] MEDS ORDERED: ACETAMINOPHEN 650 MG SUPP PR ONE (21:00)
[2020-11-23] MEDS ORDERED: APIXABAN 5 MG TAB (ELIQUIS) PO SCH (21:00)
[2020-11-23] MEDS ORDERED: NOREPINEPHRINE BITARTRATE 16 MG in D5W 484 ML IV SCH (21:00)
[2020-11-23] MEDS ORDERED: guaiFENesin ER 600 MG TAB PO SCH (21:00)
[2020-11-23] MEDS: ACETAMINOPHEN TAB 650MG DOSE (2X325MG) PO PRN (21:10)
[2020-11-23 22:34] LABS: PH BODY FLUID 7.592 UNITS (NOT ESTABLISHED); SOURCE, BODY FLUID pH PLEURAL
[2020-11-23 22:42] LABS: APPEARANCE, BODY FLUID CLOUDY (CLEAR); PLEURAL FL COLOR AMBER (COLORLESS); SOURCE, BODY FLUID PLEURAL
[2020-11-23 22:54] LABS: AMYLASE, BODY FLUID 48 U/L (NOT ESTABLISHED); CHOLESTEROL, BODY FLUID < 50 MG/DL (NOT ESTABLISHED); LDH, BODY FLUID 270 U/L (NOT ESTABLISHED); SOURCE, BODY FLUID AMYLASE PLEURAL; SOURCE, BODY FLUID CHOL PLEURAL; SOURCE, BODY FLUID GLUCOSE PLEURAL; SOURCE, BODY FLUID LDH PLEURAL; SOURCE, BODY FLUID TRIG PLEURAL; TRIGLYCERIDE, BODY FLUID 17 MG/DL (NOT ESTABLISHED)
[2020-11-23 22:55] LABS: SOURCE, BODY FLUID ALBUMIN PLEURAL; SOURCE, BODY FLUID TOT PROTEIN PLEURAL; TOTAL PROTEIN, BODY FLUID 2.8 G/DL (NOT ESTABLISHED)
[2020-11-24] VITALS (31 sets, daily range): BP systolic 63–109; BP diastolic 30–59
[2020-11-24 01:33] LABS: CK-MB VALUE MASS 8.6 NG/ML (<3.6); CPK CREATINE PHOSPHOKINASE 120 U/L (39-308); MB/CK RELATIVE INDEX 7.17 (< OR =4); TROPONIN I < 0.02 NG/ML (< 0.10)
[2020-11-24] MEDS: IPRATROPIUM 0.5MG/ALBUTEROL 2.5MG INH SOL UD 3ML (DUONEB) NEB SCH ×3 (02:00→07:24)
[2020-11-24] MEDS: PIPERACILLIN/TAZOBACTAM SOD 3.375 GM in D5W MINI-BAG PLUS 50 ML IV SCH (02:22)
[2020-11-24] MEDS: ACETAMINOPHEN TAB 650MG DOSE (2X325MG) PO PRN (05:01)
[2020-11-24 05:59] LABS: HEMATOCRIT 28.8 % (42.0-52.0); HEMOGLOBIN 8.6 g/dl (13.5-17.5); MEAN CORPUSCULAR HEMOGLOBIN 25.1 pg (27.0-33.0); MEAN CORPUSCULAR HGB CONC 29.9 g/dl (32.0-36.5); PLATELET COUNT, AUTOMATED 160 10^3/uL (150-450); RED BLOOD COUNT 3.43 10^6/uL (4.30-6.10); WHITE BLOOD COUNT 7.4 10^3/uL (4.0-10.0)
[2020-11-24] MEDS ORDERED: VANCOMYCIN HCL 750 MG, VIAL MATE ADAPTER 1 EACH in NS 250 ML IV SCH ×2 (06:00→07:00)
[2020-11-24 06:06] LABS: CALCIUM LEVEL 7.6 MG/DL (8.8-10.2); CREATININE FOR GFR 3.05 MG/DL (0.70-1.30); GLOMERULAR FILTRATION RATE 21.9 (>49); POTASSIUM SERUM 4.9 MEQ/L (3.5-5.1)
[2020-11-24 07:10] LABS: EOSINOPHILS 3 % (0-3); LYMPHOCYTES 13 % (16-44); MONOCYTES 3 % (0-5); NEUTROPHILS 69 % (28-66)
[2020-11-24 07:17] LABS: ANISOCYTOSIS 1+; PLATELET ESTIMATE NORMAL (NORMAL)
[2020-11-24 07:18] LABS: POIKILOCYTOSIS 1+
[2020-11-24] MEDS ORDERED: SCOPOLAMINE 1MG TRANSDERMAL PATCH TOP PRN (07:40)
[2020-11-24] MEDS: DOCUSATE SODIUM 100MG CAPSULE PO SCH ×2 (08:25→20:54)
[2020-11-24] MEDS: MORPHINE 2 MG/ML 1ML VIAL (J2270) IV PRN ×3 (08:25→22:30)
--- NOTE | 2020-11-24 09:32 | IPNPDOC ---
Text Note Date of Service The patient was seen on 11/24/20. NOTE Subjective: Patient is a 65-year-old male with a PMHx of HTN, DLP, COPD, Stage IV Squamous Cell CA (Refused chemotherapy, on radiation therapy), SMA occlusion (on Eliquis), R pleural effusion 2/2 Malignancy (s/p PleurX catheter), Neuropathy, who presented to the ER at the direction of his PCP. Patient was found to have a right-sided effusion with suspected pneumonia. He was admitted to the hospitalist service, pulmonology and cardiothoracic surgery were called on consultation. Patient was seen and examined at the bedside. Patient was seen with BiPAP mask in place. He refused to have central line a Chavez catheter placed. Discussed goals of care with patient and he is reported that he would like to proceed with comfort measures. Objective: Vitals (See below) General: Lying in bed, appears comfortable, AAOx3 (person, place, time) Full exam not completed Imaging: CXR 11/23: Increased right pleural effusion and infiltrate. 2 new nodules left lung base. CT Chest 11/23: 1. Significantly worsened right lung field findings as described above and possibly with loculated pleural fluid and or areas of empyema. 2. New left lung nodules consistent with metastatic disease. 3. Other findings and limitations as described above. CT Ab/Pelvis 11/23: 1. New left lung nodules as described above suspicious for metastatic disease. 2. Right pleural effusion and pericardial effusion as described above. 3. Other findings as described above. Assessment: Septic shock - likely 2/2 Pneumonia Acute on chronic hypercapnic and acute hypoxic respiratory failure Hypotension Lactic acidosis CAT Urinary retention Hyponatremia - likely 2/2 hypotonic hypovolemic etiology Normocytic anemia HTN DLP COPD Stage IV Squamous Cell CA; has refused chemotherapy SMA occlusion Neuropathy Gastrointestinal prophylaxis DVT prophylaxis Plan: - Had extensive discussion with patient this morning - Patient does not want to pursue any Chavez catheter or central line placement for Levophed that was started overnight - Patient again has confirmed that he does not want to be resuscitated or intubated - Discussed with him about considering comfort measures if he does not want any further intervention completed and patient agrees - MOLST form updated to reflect status change - Patient's sister/PROXY has been contacted and informed of current status; she will be coming in to see him Code Status: - DNR / DNI - DEPUT[employer] BRAND INSPECTOR VS,Fishbone, I+O VS, Fishbone, I+O Laboratory Tests 11/23/20 13:07 11/24/20 04:54 Vital Signs Date Time Temp Pulse Resp B/P (MAP) Pulse Ox O2 Delivery O2 Flow Rate FiO2 11/24/20 07:25 75 11/24/20 07:24 93 22 11/24/20 06:31 87/45 11/24/20 06:30 100 NIPPV (BIPAP/CPAP) 11/24/20 04:00 97.9 11/23/20 15:14 6.0 I&O- Last 24 Hours up to 6 AM 11/24/20 06:00 Intake Total 4080 ml Output Total 475 ml Balance 3605 ml JOSE RAUL CORLEY MD Nov 24, 2020 09:32
[2020-11-24] MEDS ORDERED: IBUPROFEN 800 MG TAB PO PRN (20:30)
[2020-11-24] MEDS: PERCOCET 5MG/325MG TAB PO PRN (20:54)
[2020-11-25] MEDS: MORPHINE 2 MG/ML 1ML VIAL (J2270) IV PRN (08:21)
[2020-11-25] MEDS: DOCUSATE SODIUM 100MG CAPSULE PO SCH ×2 (08:21→20:09)
[2020-11-25] MEDS: PERCOCET 5MG/325MG TAB PO PRN (20:10)
[2020-11-26] MEDS: PERCOCET 5MG/325MG TAB PO PRN ×2 (05:19→20:41)
[2020-11-26] MEDS: DOCUSATE SODIUM 100MG CAPSULE PO SCH ×2 (09:00→20:40)
[2020-11-26] MEDS: MORPHINE 10MG/0.5ML ORAL CONCENTRATE SOLUTION U/D SL PRN (23:46)
[2020-11-27] MEDS: DOCUSATE SODIUM 100MG CAPSULE PO SCH ×2 (09:00→20:23)
[2020-11-27] MEDS: MORPHINE 10MG/0.5ML ORAL CONCENTRATE SOLUTION U/D SL PRN ×3 (11:02→19:38)
[2020-11-27] MEDS: LORazepam 2 MG/ML VIAL IV PRN ×3 (11:09→19:38)
[2020-11-27] MEDS ORDERED: LORazepam 2 MG/ML VIAL As Ordered ONE (19:34)
[2020-11-28] MEDS: MORPHINE 10MG/0.5ML ORAL CONCENTRATE SOLUTION U/D SL PRN ×4 (05:36→23:07)
[2020-11-28] MEDS: MORPHINE 2 MG/ML 1ML VIAL (J2270) IV PRN ×3 (11:29→17:56)
[2020-11-28] MEDS ORDERED: LORazepam 1 MG TAB PO PRN (18:30)
[2020-11-28] MEDS: [UNRECOGNIZED DRUG - OTHER] MT PRN ×3 (18:48→23:07)
[2020-11-28] MEDS: ATROPINE SULFATE 1% OP SOLN 2 ML BTL SL PRN (23:07)
[2020-11-29] MEDS: [UNRECOGNIZED DRUG - OTHER] MT PRN (04:11)
[2020-11-29] MEDS: MORPHINE 10MG/0.5ML ORAL CONCENTRATE SOLUTION U/D SL PRN (04:11)
[2020-11-29] MEDS: ATROPINE SULFATE 1% OP SOLN 2 ML BTL SL PRN (04:11)
--- NOTE | 2020-11-29 11:29 | DS.PDOC ---
Discharge Summary General Date of Admission Nov 23, 2020 at 15:06 Date of Discharge 11/29/2020 Discharge Summary PROCEDURES PERFORMED DURING STAY: [None]. ADMITTING DIAGNOSES / DISCHARGE DIAGNOSES: Septic shock - likely 2/2 Pneumonia Acute on chronic hypercapnic and acute hypoxic respiratory failure Hypotension Lactic acidosis CAT Urinary retention Hyponatremia - likely 2/2 hypotonic hypovolemic etiology Normocytic anemia HTN DLP COPD Stage IV Squamous Cell CA; has refused chemotherapy SMA occlusion Neuropathy Gastrointestinal prophylaxis DVT prophylaxis COMPLICATIONS/CHIEF COMPLAINT: Shortness of breath HISTORY OF PRESENT ILLNESS / HOSPITAL COURSE: Patient is a 65-year-old male with a PMHx of HTN, DLP, COPD, Stage IV Squamous Cell CA (Refused chemotherapy, on radiation therapy), SMA occlusion (on Eliquis), R pleural effusion 2/2 Malignancy (s/p PleurX catheter), Neuropathy, who presented to the ER at the direction of his PCP. Patient was found to have a right-sided effusion with suspected pneumonia. He was admitted to the hospitalist service, pulmonology and cardiothoracic surgery were called on consultation. After extensive discussion with the patient on 11/24, patient had opted to transition to comfort measures. He did not want any aggressive interventions including resuscitation, intubation, central line placement or chemotherapy. MOLST form was updated to reflect this change. Patient's nonessential medications were discontinued and medication for comfort alone were instituted. Ultimately patient on 11/29/2020 morning. DISCHARGE MEDICATIONS: Please see below. ALLERGIES: Please see below. LABORATORY DATA: Please see below. IMAGING: CXR 11/23: Increased right pleural effusion and infiltrate. 2 new nodules left lung base. CT Chest 11/23: 1. Significantly worsened right lung field findings as described above and possibly with loculated pleural fluid and or areas of empyema. 2. New left lung nodules consistent with metastatic disease. 3. Other findings and limitations as described above. CT Ab/Pelvis 11/23: 1. New left lung nodules as described above suspicious for metastatic disease. 2. Right pleural effusion and pericardial effusion as described above. 3. Other findings as described above. DISPOSITION: Vital Signs/I&Os Vital Signs Date Time Temp Pulse Resp B/P (MAP) Pulse Ox O2 Delivery O2 Flow Rate FiO2 11/28/20 23:07 4.5 11/27/20 00:16 16 Room Air 11/24/20 07:46 100 68/34 (45) 100 11/24/20 07:30 75 11/24/20 04:00 97.9 Microbiology Microbiology 11/23/20 Acid Fast Stain, Received Pending 11/23/20 Mycobacterial Culture, Received Pending 11/23/20 Fungal Smear, Received Pending 11/23/20 Fungal Culture, Received Pending 11/23/20 Gram Stain - Final, Complete 11/23/20 Anaerobic Culture - Final, Complete 11/23/20 Body Fluid Culture - Final, Complete Acinetobacter Radioresistens Staphylococcus Cohnii 11/23/20 Respiratory Virus Panel (PCR) ([facility]) - Final, Complete 11/23/20 Blood Culture - Final, Complete NO GROWTH AFTER 5 DAYS 11/23/20 Blood Culture - Final, Complete NO GROWTH AFTER 5 DAYS Discharge Medications Scheduled Apixaban (Eliquis) 5 Mg Tablet, 5 MG PO BID, (Reported) Cholecalciferol (Vitamin D3) (Vitamin D3) 1,000 Unit Tablet, 1,000 UNITS PO DAILY, (Reported) Ferrous Sulfate (Ferrous Sulfate) 325 Mg Tablet, 325 MG PO DAILY, (Reported) Losartan Potassium (Losartan Potassium) 50 Mg Tablet, 50 MG PO DAILY, (Reported) Oxycodone HCl/Acetaminophen (Oxycodone-Acetaminophen 5-325) 1 Each Tablet, 1 TAB PO QHS, (Reported) Scheduled PRN Albuterol Sulfate (Proair Hfa) 8.5 Gm Hfa.aer.ad, 2 PUFF INH Q4H PRN for SOB/WHEEZING, (Reported) Ondansetron HCl (Ondansetron HCl) 4 Mg Tablet, 1 TAB PO TIDP PRN for nausea/vomiting Allergies Coded Allergies: No Known Allergies (Unverified , 09/07/12) JOSE RAUL CORLEY MD Nov 29, 2020 11:29
== END 2020-11-29 05:42 | disposition expired | DRG 871 ==
LOC: M ED 12:34 → M ED INP 15:06 → ENRESERV 19:16 → M PCU 20:08 → M MSPAV 11-24 14:48
PROVIDERS: ADMIT Internal Medicine; ATTEND Internal Medicine
DX: A41.9 Sepsis, unspecified organism (principal); J96.21 Acute and chronic respiratory failure with hypoxia; K55.069 Acute infarction of intestine, part and extent unspecified; J96.22 Acute and chronic respiratory failure with hypercapnia; J18.9 Pneumonia, unspecified organism; R65.21 Severe sepsis with septic shock; E87.2 Acidosis; N17.9 Acute kidney failure, unspecified; E87.1 Hypo-osmolality and hyponatremia; C34.91 Malignant neoplasm of unspecified part of right bronchus or lung; J91.0 Malignant pleural effusion; E87.4 Mixed disorder of acid-base balance; Z66 Do not resuscitate; I95.9 Hypotension, unspecified; R33.9 Retention of urine, unspecified; D64.9 Anemia, unspecified; I10 Essential (primary) hypertension; E78.5 Hyperlipidemia, unspecified; J44.9 Chronic obstructive pulmonary disease, unspecified; G62.9 Polyneuropathy, unspecified; Z20.822 Contact with and (suspected) exposure to COVID-19; Z79.01 Long term (current) use of anticoagulants; Z87.891 Personal history of nicotine dependence; Z51.5 Encounter for palliative care

== ENCOUNTER → 2020-11-23 | Outpatient (REF) | payer OTHER, MEDICAID ==
[~2020-11-23] MED LIST changes: +DOK1CAP4 PO; -DOK1CAP7 PO; +FERR1TAB8 PO; +ONDA-83 PO; +OXYC1TAB23 PO
== END ==
LOC: M SFHCADAM 12:19
PROVIDERS: ATTEND Family Medicine
DX: R53.1 Weakness (principal)